=== PATIENT | male | born 1955 | race Caucasian/White ===

== ENCOUNTER → 2021-10-25 13:40 | Outpatient (BNVA) | payer MEDICARE, OTHER, SELFPAY | PROVIDERS: Family Provider Family Medicine; PCP Family Medicine; Visit Provider Family Medicine | DX: Z00.00 Encounter for general adult medical examination without abnormal findings (principal); K74.60 Unspecified cirrhosis of liver; E03.9 Hypothyroidism, unspecified; I10 Essential (primary) hypertension; E78.5 Hyperlipidemia, unspecified | CPT/HCPCS: 80053; 80061; 84443; 85025 ==

== ENCOUNTER → 2021-10-27 08:23 | Outpatient (BNVA) | payer MEDICARE, OTHER, SELFPAY | PROVIDERS: Family Provider Family Medicine; PCP Family Medicine; Visit Provider Family Medicine | DX: Z00.00 Encounter for general adult medical examination without abnormal findings (principal); K74.60 Unspecified cirrhosis of liver; E03.9 Hypothyroidism, unspecified; I10 Essential (primary) hypertension; E78.5 Hyperlipidemia, unspecified | CPT/HCPCS: 80053; 80061; 84443; 85025 ==

== ENCOUNTER → 2021-11-29 15:50 | Outpatient (BNVA) | payer MEDICARE, OTHER, SELFPAY | PROVIDERS: Family Provider Family Medicine; PCP Family Medicine; Visit Provider Family Medicine | DX: L98.9 Disorder of the skin and subcutaneous tissue, unspecified (principal) | CPT/HCPCS: 88304 ==

== ENCOUNTER → 2022-03-21 14:09 | Outpatient (BNVA) | payer MEDICARE, SELFPAY | PROVIDERS: Family Provider Family Medicine; PCP Family Medicine; Visit Provider Clinical Nurse Specialist Adult Health | DX: D62 Acute posthemorrhagic anemia (principal); I10 Essential (primary) hypertension; I85.00 Esophageal varices without bleeding | CPT/HCPCS: 80053; 85025 ==

== ENCOUNTER → 2022-05-11 08:25 | Outpatient (BNVA) | payer MEDICARE, SELFPAY | PROVIDERS: Family Provider Family Medicine; PCP Family Medicine; Visit Provider Family Medicine | DX: D62 Acute posthemorrhagic anemia (principal); I85.00 Esophageal varices without bleeding; I10 Essential (primary) hypertension; E03.9 Hypothyroidism, unspecified | CPT/HCPCS: 80053; 85025 ==

== ENCOUNTER → 2022-06-09 09:43 | Outpatient (BNVA) | payer MEDICARE, SELFPAY | PROVIDERS: Family Provider Family Medicine; PCP Family Medicine; Visit Provider Family Medicine | DX: D62 Acute posthemorrhagic anemia (principal); I10 Essential (primary) hypertension; I85.00 Esophageal varices without bleeding; L57.0 Actinic keratosis; E03.9 Hypothyroidism, unspecified | CPT/HCPCS: 80053; 85025 ==

== ENCOUNTER → 2022-08-30 08:03 | Outpatient (BNVA) | payer MEDICARE, SELFPAY | PROVIDERS: Family Provider Family Medicine; PCP Family Medicine; Visit Provider Family Medicine | DX: R60.9 Edema, unspecified (principal); I10 Essential (primary) hypertension; E03.9 Hypothyroidism, unspecified | CPT/HCPCS: 80053; 83880; 84443; 85025; 85379 ==

== ENCOUNTER 2022-09-08 10:02 | Outpatient (CLI) | payer MEDICARE, SELFPAY ==
--- NOTE | 2022-09-08 10:30 | USCV_ITS ---
Juan Doherty Age: 66 Gender: M : 1955 Exam Date: 09/08/2022 10:28 Ordering Phys: Shaheed Guzman MD Technologist: HARPAL Exam Location: [facility] [place] Indication: Swelling HISTORY: Lower extremity swelling. PROCEDURES: Venous duplex imaging was performed in only the left lower extremity. The following venous structures were evaluated: common femoral vein, profunda vein, proximal portion of the greater saphenous vein, superficial femoral vein, and the popliteal vein. In addition, the posterior tibial and peroneal trunk were evaluated. Serial compression, augmentation maneuvers, and spectral Doppler flow evaluation were performed. FINDINGS: Normal 2-D Doppler and augmentation and compressibility throughout the lower extremity venous structures. Additional imaging through the proximal calf veins also reveals no thrombus. Limited evaluation of the greater saphenous vein is patent with no thrombus. CONCLUSIONS No DVT left lower extremity. Dr. Mira De Santiago DO (Electronically Signed) Final Date: 08 September 2022 12:28 Amended: 15 September 2022 09:31 C
== END 2022-09-08 10:03 | disposition home or self-care (01) ==
LOC: RAD 10:08
PROVIDERS: PCP Family Medicine; Visit Provider Family Medicine
DX: M79.89 Other specified soft tissue disorders (principal)
CPT/HCPCS: 93971

== ENCOUNTER 2022-09-13 07:54 | Outpatient (CLI) | payer MEDICARE, SELFPAY ==
--- NOTE | 2022-09-13 08:12 | US_ITS ---
WS: [id number] ABDOMINAL ULTRASOUND LIMITED REASON FOR EXAM: CIRRHOSIS OF LIVER COMPARISON: None available. ORDER DATE: 09/13/2022 8:14 AM TECHNIQUE: Grayscale and Doppler ultrasound examination of the abdomen. FINDINGS: Pancreas: Unremarkable as visualized Abdominal aorta and IVC: Unremarkable Liver: Liver measures 14.2 cm in length. Coarse echotexture. Patent TIPS stent noted. Slightly hypoec hoic avascular lesion noted in the posterior right lobe measuring approximately 4.3 cm in diameter. T his is near the posterior diaphragm. Gallbladder: Gallbladder wall thickness measures 0.2 mm. No evidence of cholelithiasis Right kidney: Right kidney measures 9.9 cm x 5.8 cm x 6.6 cm. Right kidney cortex measures 1.3. Vascu larity unremarkable US/US abdomen limited [id number] IMPRESSION: Right hepatic lobe lesion recommend correlation with CT or MR imaging. There ma y be increased artifact resulting from the TIPS stent on other imaging.
== END 2022-09-13 07:55 | disposition home or self-care (01) ==
PROVIDERS: PCP Family Medicine; Visit Provider Nurse Practitioner
DX: K74.60 Unspecified cirrhosis of liver (principal); K76.89 Other specified diseases of liver
CPT/HCPCS: 76705

== ENCOUNTER 2022-12-12 11:52 | Outpatient (CLI) | payer MEDICARE, SELFPAY ==
--- NOTE | 2022-12-12 12:10 | CT_ITS ---
WS: [id number] CT ABDOMEN WITH CONTRAST HISTORY: LIVER DZ/CIRRHOSIS OF LIVER Contiguous single phase 3 mm axial imaging performed to the abdomen. Oral contrast has not been provi ded. Coronal and sagittal reformats are submitted. All CT scans at [facility] use at least on e of these dose optimization techniques: automated exposure control; mA and/or kV adjustment per ashly ent size (includes targeted exams where dose is matched to clinical indication); or iterative reconst ruction. IV CONTRAST: Omnipaque 350; 100 mL IV. Oral contrast: No DLP: 1168.05 mGy.cm COMPARISON: 09/13/2022 Lower thorax: Chronic emphysematous changes and fibrosis at the lung bases. No mass or nodule. Heart is normal size. Small hiatal hernia. Liver/biliary system: Cirrhotic appearing liver. Patient has a stent from prior TIPS procedure. There is a low-attenuation mass with increased Hounsfield units involving the posterior RIGHT lobe of the liver measuring 3.5 x 4.2 cm. No precontrast imaging is submitted. This was not present on the prior CT from 2010. No additional liver abnormality. Gallbladder: Normal. No gallstones or wall thickening. No pericholecystic fluid. Pancreas: Normal size pancreas and pancreatic duct. No adjacent inflammation. Spleen: Spleen is top normal size with granulomata. Adrenal glands: Normal. Right kidney: Normal. Left kidney: Normal. Aorta: Mild atherosclerosis with no aneurysm. Lymphadenopathy: None. Free fluid: None. GI tract: There is marked thickening of the stomach. No small bowel obstruction. Abdominal wall: Fat containing umbilical hernia. Visualized osseous structures: L1 compression fracture. CT/CT abdomen w con* [id number] IMPRESSION: 1. Mass with elevated Hounsfield units involving the posterior RIGHT lobe of t he liver measures 3.5 x 4.2 cm. Noncontrast imaging was not performed. The exte nt of enhancement is not determined without noncontrast imaging. This could be a cystic neoplasm or complex cyst. 2. Cirrhotic liver. 3. Status post TIPS procedure. 4. Diffuse mucosal thickening of the stomach. 5. Consider short-term follow-up CT of the liver versus PET/CT imaging. PET/CT imaging would be helpful to evaluate the stomach and also the liver.
[2022-12-12 13:03] LABS: Blood Urea Nitrogen 12 mg/dL (8-23); Glomerular Filtration Rate 84.2 mL/min (90-130)
[2022-12-12] MEDS: iohexol 350 mg/mL 500 mL Btl (per mL) IV (13:11)
== END 2022-12-12 11:53 | disposition home or self-care (01) ==
PROVIDERS: PCP Family Medicine; Visit Provider Nurse Practitioner
DX: K74.60 Unspecified cirrhosis of liver (principal); R16.0 Hepatomegaly, not elsewhere classified; Z98.890 Other specified postprocedural states; Z96.89 Presence of other specified functional implants
CPT/HCPCS: 74160; 82565; 84520; Q9967

== ENCOUNTER → 2022-12-22 11:06 | Outpatient (BNVA) | payer MEDICARE, SELFPAY | PROVIDERS: PCP Family Medicine; Visit Provider Family Medicine | DX: I10 Essential (primary) hypertension (principal); R60.9 Edema, unspecified | CPT/HCPCS: 80053; 83880; 84443; 84550; 85025 ==

== ENCOUNTER → 2023-02-01 14:54 | Outpatient (BNVA) | payer MEDICARE, SELFPAY | PROVIDERS: PCP Family Medicine; Visit Provider Family Medicine | DX: L98.9 Disorder of the skin and subcutaneous tissue, unspecified (principal) | CPT/HCPCS: 88304 ==

== ENCOUNTER 2023-02-13 09:25 | Inpatient (IN) | payer MEDICARE, SELFPAY ==
[2023-02-13] VITALS (103 sets, daily range): BP systolic 85–119; BP diastolic 48–75; PULSE 80–127; RESP 17–42; TEMP 36.6–37.4; O2SAT 67–96; BMI 28.0
--- NOTE | 2023-02-13 09:31 | XR_ITS ---
WS: [id number] Exam: XR chest 1V portable [id number] Date/Time of Exam: 02/13/2023 9:37 AM Reason For Exam: dyspnea/cough Comparison 08/01/2012. There is focal infiltrate in the LEFT lower lobe suspicious for pneumonia. There is also a focal dens ity in the mid RIGHT lung that may represent either infiltrate or a pulmonary nodule. Advanced superi mposed changes of honeycombing and bullous emphysema noted. Scarring in the bilateral lung apices. No rmal cardiomediastinal silhouette. No pleural effusions or pneumothorax. Bony structures are intact. IMPRESSION: 1. Focal infiltrate in the LEFT lower lobe suspicious for pneumonia. 2. 2.5 cm focal density in the mid RIGHT lung that may represent either focal infiltrate or pulmonary nodule. 3. Advanced changes of honeycombing and bullous emphysema. Recommendations: Contrast CT scan of the chest might be considered for more definitive evaluation.
--- NOTE | 2023-02-13 09:47 | ECG_ITS ---
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 Measurements Intervals [place] Rate: 126 P: 58 MA: 142 QRS: 47 QRSD: 82 T: 60 QT: 323 QTc: 469 Interpretive Statements SINUS TACHYCARDIA ABNORMAL RHYTHM ECG No previous ECG available for comparison Electronically Signed On 02-13-2023 16:03:13 CDT by Rosendo Almeida M.D. [id number] f
--- NOTE | 2023-02-13 09:55 | W.ED.SOB ---
HPI - SOB/Dyspnea General: Chief Complaint: Shortness of Breath/Dyspnea Stated Complaint: covid +, NVD, sob Time Seen by Provider: 02/13/23 09:29 Source: patient and family Mode of arrival: ambulatory History of Present Illness: HPI Narrative: 67-year-old male who presents to the emergency room with complaints of shortness of breath. He has a history of COPD. He has had nausea vomiting diarrhea and shortness of breath progressively worsening over the last week he tested positive for COVID this morning. He denies any chest pain. Does have a history per his report of coronary artery disease but has not had any previous bypass or stenting. Cough has been for the most part nonproductive. Normally is on 2 L at home on arrival here he is satting in the 70% 15 L by mask only increases his oxygenation to the mid 80s. MD elicited complaint: shortness of breath and cough Pertinent past history: COPD Onset (ago): week(s) (1) Timing: constant Severity: mild Exacerbating factors: nothing Relieving factors: nothing Known history of: COPD Associated symptoms: Reports chest congestion, cough, diaphoresis and nausea; Deny abdominal pain, chest pain, dizziness, extremity pain, fever(s), hemoptysis, lightheadedness, myalgias, orthopnea, palpitations, paresthesias, polydipsia, polyuria, rash, sense of impending doom, syncope, vomiting or other Review of Systems Const: Reports: diaphoresis; Denies: fever(s) Card: Denies: chest pain, palpitations, lightheadedness, syncope or orthopnea Resp: Reports: chest congestion; Denies: hemoptysis GI: Reports: nausea; Denies: abdominal pain or vomiting Musc: Denies: extremity pain Neuro: Denies: dizziness Endo: Denies: polyuria or polydipsia PFSH ED PFSH: Medical History Lora's esophagus Cirrhosis COPD (chronic obstructive pulmonary disease) Hypertension Hypothyroidism Surgical History History of colon surgery Family History Other Cancer Diabetes Social History Smoking and tobacco status: former smoker Physical Exam Const: GENERAL APPEARANCE: cooperative ORIENTATION/CONSCIOUSNESS: Yes awake, Yes oriented to person, Yes oriented to place and Yes oriented to time HENMT: COMMON NORMALS: normocephalic, atraumatic and hearing grossly normal bilaterally HEAD & SCALP: normocephalic and atraumatic Resp: COMMON NORMALS: normal respiratory effort, No retractions and No use of accessory muscles AUSCULTATION: rales and wheezes Cardio: COMMON NORMALS: regular rhythm and No murmurs present (Cardio) RATE: tachycardic RHYTHM: regular rhythm GI: COMMON NORMALS: Soft to palpation and No hepatosplenomegaly present AUSCULTATION: Yes normoactive bowel sounds PALPATION: Yes Soft to palpation, No Tenderness to palpation present (GI), No Guarding due to palpation present (GI) and Yes No hepatosplenomegaly present Extremity: COMMON NORMALS: normal to inspection, capillary refill normal, no clubbing, cyanosis or edema, no calf tenderness and no pedal edema Neuro: SENSORIUM/ORIENTATION: Yes oriented to person, Yes oriented to place and Yes oriented to time Skin: COMMON NORMALS: no rashes or lesions noted GENERAL SKIN EXAM: no rashes or lesions noted Course Vital Signs: Vital signs: Vital Signs Temperature 97.9 F 02/13/23 09:25 Pulse Rate 118 H 02/13/23 11:42 Respiratory Rate 20 H 02/13/23 11:42 Blood Pressure 119/61 02/13/23 11:42 Pulse Oximetry 96 02/13/23 11:42 Oxygen Delivery Me thod Heated High Flow 02/13/23 10:09 MDM - SOB/Dyspnea Medical Decision Making COVID pneumonitis with secondary pneumonia. Discussed with Dr. Fairbanks will admit remdesivir and dexamethasone as well as Zosyn all ordered admit to ICU on heated high flow. Patient has a history of hepatic cirrhosis previous esophageal varices status post TIPS procedure. Orders written Medical Records I reviewed the patient's medical records. Lab Data I reviewed the patient's lab results. 02/13/23 09:53 02/13/23 09:53 Labs/Radiology: Laboratory Results WBC 8.43 10^3/uL (3.29-11.43) 02/13/23 09:53 RBC 4.76 10^6/uL (3.85-5.65) 02/13/23 09:53 Hgb 14.40 g/dL (11.27-16.99) 02/13/23 09:53 Hct 43.1 % (37-53) 02/13/23 09:53 MCV 90.5 fl (82-101) 02/13/23 09:53 MCH 30.3 pg (27-33) 02/13/23 09:53 MCHC 33.4 g/dL (30-55) 02/13/23 09:53 RDW 16.8 % (12.1-15.1) H 02/13/23 09:53 Plt Count 234 10^3/cmm (157-399) 02/13/23 09:53 MPV 9.5 fL (7.4-10.4) 02/13/23 09:53 Neut % (Auto) 76.5 % 02/13/23 09:53 Lymph % (Auto) 14.8 % 02/13/23 09:53 [place] % (Auto) 7.2 % 02/13/23 09:53 Eos % (Auto) 0.1 % 02/13/23 09:53 Baso % (Auto) 0.2 % 02/13/23 09:53 Neut # (Auto) 6.44 10^3/uL (1.8-7.7) 02/13/23 09:53 Lymph # (Auto) 1.3 10^3/uL (0.8-4.8) 02/13/23 09:53 [place] # (Auto) 0.6 10^3/uL (0.2-0.9) 02/13/23 09:53 Eos # (Auto) 0.0 10^3/uL (0.0-0.8) 02/13/23 09:53 Baso # (Auto) 0.0 10^3/uL (0.0-0.1) 02/13/23 09:53 Nucleated RBC % (auto) 0 % 02/13/23 09:53 Nucleated RBCs # 0.0 /100WBC 02/13/23 09:53 Specimen Type Arterial 02/13/23 11:00 Sample Site Radial, right 02/13/23 11:00 ABG pH 7.40 (7.35-7.45) 02/13/23 11:00 ABG pCO2 21.8 mmHg (35-45) L 02/13/23 11:00 ABG pO2 76.1 mmHg (80.0-100.0) L 02/13/23 11:00 ABG HCO3 13.5 mmol/L (22-26) L 02/13/23 11:00 ABG O2 Saturation 95.1 02/13/23 11:00 ABG Base Excess -8.8 mmol/L (-2.0-2.0) L 02/13/23 11:00 Tigre Test Pos 02/13/23 11:00 A-a O2 Gradient 79.2 mmHg (5-10) H 02/13/23 11:00 Hematocrit 49.0 % (42-52) 02/13/23 11:00 Hgb O2 Saturation 94.1 % (95-100) L 02/13/23 11:00 Carboxyhemoglobin 0.9 %THgb (0.4-20.1) 02/13/23 11:00 Methemoglobin 0.2 % (0.4-1.5) L 02/13/23 11:00 Total Hemoglobin 16.0 g/dL (14-18) 02/13/23 11:00 Sodium 141.0 mmol/L (131-143) 02/13/23 11:00 Potassium 4.2 mmol/L (3.5-5.0) 02/13/23 11:00 Glucose 134.0 mg/dL (70-115) H 02/13/23 11:00 Ionized Calcium 1.1 mmol/L (1.1-1.4) 02/13/23 11:00 O2 Delivery Device Hag 02/13/23 11:00 O2 Liters/Min 60.0 % 02/13/23 11:00 FiO2 100.0 % 02/13/23 11:00 Surgical Garment Inspector ID [id number] 02/13/23 11:00 Sodium 138 mmol/L (136-145) 02/13/23 09:53 Potassium 4.2 mmol/L (3.5-5.1) 02/13/23 09:53 Chloride 107 mmol/L (98-107) 02/13/23 09:53 Carbon Dioxide 15 mmol/L (22-29) L 02/13/23 09:53 Anion Gap 20.2 (5-19) H 02/13/23 09:53 BUN 34 mg/dL (8-23) H 02/13/23 09:53 Creatinine 1.4 mg/dL (0.7-1.2) H 02/13/23 09:53 GFR Calculation 50.4 mL/min (90-130) L 02/13/23 09:53 Glucose 125 mg/dL (65-115) H 02/13/23 09:53 Calculated Osmolality 295 mOsm/kg (285-295) 02/13/23 09:53 Calcium 8.3 mg/dL (8.5-10.5) L 02/13/23 09:53 Total Bilirubin 1.1 mg/dL (0.15-1.2) 02/13/23 09:53 AST 107 U/L (0-40) H 02/13/23 09:53 ALT 45 U/L (0-41) H 02/13/23 09:53 Alkaline Phosphatase 135 U/L (40-130) H 02/13/23 09:53 Total Protein 8.7 g/dL (6.6-8.7) 02/13/23 09:53 Albumin 3.1 g/dL (3.5-5.2) L 02/13/23 09:53 Globulin 5.6 g/dL (1.3-4.6) H 02/13/23 09:53 Coronavirus 229E (PCR) Not detected (NOT DETECT) 02/13/23 09:58 SARS-CoV-2 (PCR) Detected (NOT DETECT) A 02/13/23 09:58 Discharge Plan Discharge Patient Disposition: Admitted As Inpatient Admit Provider: Cipriano Robbins Clinical Impression: Pneumonia due to COVID-19 virus Condition: Stable Coding Level of Care Code ED Library Attendant for Devendra Liu
[2023-02-13 10:06] LABS: ABG PH Result 7.41 (7.35-7.45); Arterial Blood Gas Hematocrit 49.5 % (42-52); Base Excess ABG -9.9 mmol/L (-2.0-2.0); Blood Gas Allen Test Pos; Blood Gas Operator Identificat glc; Blood Gas Sample Site Radial, right; Blood Gas Sample Type Arterial; Carboxyhemoglobin 1.1 %THgb (0.4-20.1); HCO3 ABG 11.8 mmol/L (22-26); HGB O2 Sat 90.9 % (95-100); Ionized Calcium Level - ABG 1.1 mmol/L (1.1-1.4); Methemoglobin 0.2 % (0.4-1.5); Oxygen Device HAG; Oxygen Saturation ABG 92.1; PO2 ABG 65.5 mmHg (80.0-100.0); Potassium Level - ABG 4.2 mmol/L (3.5-5.0); Total Hemoglobin 16.2 g/dL (14-18)
[2023-02-13 10:08] LABS: Basophils % 0.2 %; Eosinophils % 0.1 %; Hematocrit 43.1 % (37-53); Lymphocytes # 1.3 10^3/uL (0.8-4.8); Lymphocytes % 14.8 %; Mean Corpuscular HGB Conc 33.4 g/dL (30-55); Mean Corpuscular Hemoglobin 30.3 pg (27-33); Mean Corpuscular Volume 90.5 fl (82-101); Mean Platelet Volume 9.5 fL (7.4-10.4); Monocytes # 0.6 10^3/uL (0.2-0.9); Monocytes % 7.2 %; Neutrophils # 6.44 10^3/uL (1.8-7.7); Neutrophils % 76.5 %; Nucleated Red Blood Cells % 0 %; Platelet Count 234 10^3/cmm (157-399); Red Blood Count 4.76 10^6/uL (3.85-5.65); Red Cell Distribution Width 16.8 % (12.1-15.1); White Blood Count 8.43 10^3/uL (3.29-11.43)
[2023-02-13 10:09] LABS: ABG PCO2 18.9 mmHg (35-45)
[2023-02-13 10:23] LABS: Alanine Aminotransferase 45 U/L (0-41); Albumin Level 3.1 g/dL (3.5-5.2); Alkaline Phosphatase 135 U/L (40-130); Anion Gap 20.2 (5-19); Aspartate Amino Transferase 107 U/L (0-40); Blood Urea Nitrogen 34 mg/dL (8-23); Calcium 8.3 mg/dL (8.5-10.5); Carbon Dioxide 15 mmol/L (22-29); Chloride 107 mmol/L (98-107); Globulin 5.6 g/dL (1.3-4.6); Glomerular Filtration Rate 50.4 mL/min (90-130); Glucose 125 mg/dL (65-115); Osmolality Calculated 295 mOsm/kg (285-295); Potassium 4.2 mmol/L (3.5-5.1); Sodium 138 mmol/L (136-145); Total Bilirubin 1.1 mg/dL (0.15-1.2); Total Protein 8.7 g/dL (6.6-8.7)
[2023-02-13] MEDS: terbutaline 1 mg/mL INJ 0.25 MG SUBCUT (10:27)
[2023-02-13] MEDS: ondansetron 2 mg/ML SDV 2 mL 4 MG IVP (10:27)
--- NOTE | 2023-02-13 11:03 | PC.PHAR ---
pt states he takes care of his own medications-pt states he no longer takes metoprolol succinate er 50mg daily filled 05/08/22 90d/s or 25mg tabs take 12.5mg daily filled 03/17/22 30d/s-pt states he only has an albuterol inhaler ext doesnt shows when last filled-pt states he doesnt have a symbicort 160-4.5mcg or spiriva handihaler that was entered on previously entered med list-pt states he is only taking the medications entered-
[2023-02-13] MEDS: dexamethasone 10 mg/mL INJ IVP (11:10)
[2023-02-13] MEDS: sodium chloride 0.9% 1,000 ML 999 ML IV (11:11)
[2023-02-13 11:12] LABS: ABG PCO2 21.8 mmHg (35-45); Alveolar-Arterial Oxygen Gradi 79.2 mmHg (5-10); Base Excess ABG -8.8 mmol/L (-2.0-2.0); Blood Gas Allen Test Pos; Blood Gas Operator Identificat glc; Blood Gas Sample Site Radial, right; Blood Gas Sample Type Arterial; Carboxyhemoglobin 0.9 %THgb (0.4-20.1); HCO3 ABG 13.5 mmol/L (22-26); HGB O2 Sat 94.1 % (95-100); Ionized Calcium Level - ABG 1.1 mmol/L (1.1-1.4); Methemoglobin 0.2 % (0.4-1.5); Oxygen Device HAG; Oxygen Saturation ABG 95.1; PO2 ABG 76.1 mmHg (80.0-100.0); Potassium Level - ABG 4.2 mmol/L (3.5-5.0)
[2023-02-13 11:49] LABS: Adenovirus Not Detected (NOT DETECT); Chlamydia Pneumoniae Not Detected (NOT DETECT); Coronavirus 229E,HKU1,NL63,OC4 Not Detected (NOT DETECT); Human Metapneumovirus Not Detected (NOT DETECT); Human Rhinovirus/Enterovirus Not Detected (NOT DETECT); Influenza A Not Detected (NOT DETECT); Influenza A H1 Not Detected (NOT DETECT); Influenza A H1-2009 Not Detected (NOT DETECT); Influenza A H3 Not Detected (NOT DETECT); Influenza B Not Detected (NOT DETECT); Mycoplasma Pneumoniae Not Detected (NOT DETECT); Parainfluenza Virus Type 1 Not Detected (NOT DETECT); Parainfluenza Virus Type 2 Not Detected (NOT DETECT); Parainfluenza Virus Type 3 Not Detected (NOT DETECT); Parainfluenza Virus Type 4 Not Detected (NOT DETECT); Respiratory Syncytial Virus A Not Detected (NOT DETECT); Respiratory Syncytial Virus B Not Detected (NOT DETECT)
[2023-02-13] MEDS: piperacillin-tazobactam 3.375 GM in sodium chloride 0.9% (plus) 50 ML IV ×2 (11:49→17:55)
[2023-02-13 11:57] LABS: SARS-COV-2 Detected (NOT DETECT)
[2023-02-13] MEDS: albuterol 2.5 mg/3 mL Neb INHALATION (12:22)
[2023-02-13] MEDS: remdesivir 200 MG in sodium chloride 0.9% (100 ml) 60 ML 100 MG IV (12:27)
--- NOTE | 2023-02-13 12:36 | P.HP_ITS ---
Providers/Chief Complaint Admitting Physician: Cipriano Robbins MD Primary Care Provider: Shaheed Guzman MD Chief Complaint: covid +, NVD, sob History of Present Illness Juan Doherty is a 67 year old male who presents to the hospital with feeling ill for the last week. His history is augmented by his family who is in the room with him secondary to his tachypnea and respiratory failure. From my understanding he has been ill with loose stools over the last week, but significantly short of breath over his baseline for the last 2 days. He was told he had a fever by his grandson, but cannot remember the exact temperature. He normally takes 2 L of oxygen but is requiring 100% FiO2 by high flow, heated in the ER. He denies any chest discomfort. He states he feels perhaps a little bit better than when he came in. He has not been eating or drinking very well l ately. Review of Systems General: Reports: 10 or more systems reviewed and unremarkable except in HPI and below Card: Denies: chest pain Resp: Reports: dyspnea and productive cough GI: Denies: abdominal pain, nausea, vomiting, hematochezia or melena Medications/Allergies Home Medications Medication Instructions Recorded Confirmed Last Taken Type omeprazole 40 mg capsule,delayed 40 mg PO BID 01/08/20 02/13/23 Unknown History release montelukast 10 mg tablet 10 mg PO DAILY #30 tabs 04/21/22 02/13/23 Unknown Rx (Singulair) lactulose 10 gram/15 mL (15 mL) 20 g (30 mL) PO TID #1,440 mL 05/12/22 02/13/23 Unknown Rx oral solution albuterol sulfate 90 mcg/actuation 2 puff inhalation QID PRN 02/13/23 02/13/23 Unknown History aerosol inhaler Shortness Of Breath ascorbic acid (vitamin C) 500 mg 500 mg PO DAILY 02/13/23 02/13/23 Unknown History tablet (Vitamin C) ferrous sulfate 325 mg (65 mg 325 mg PO DAILY 02/13/23 02/13/23 Unknown History iron) tablet levothyroxine 50 mcg tablet 50 mcg PO DAILY 02/13/23 02/13/23 Unknown History milk thistle 500 mg capsule 500 mg PO DAILY 02/13/23 02/13/23 Unknown History simvastatin 40 mg tablet 40 mg PO DAILY 02/13/23 02/13/23 Unknown History turmeric 400 mg capsule 400 mg PO DAILY 02/13/23 02/13/23 Unknown History Allergies Allergy/AdvReac Type Severity Reaction Status Date / Time No Known Allergies Allergy Unverified 02/13/23 09:57 PFSH Acute PFSH: Medical History (Updated 02/13/23 @ 13:06 by Cipriano Robbins MD) Lora's esophagus Cirrhosis History of TIPS Colon cancer Resection 2013 COPD (chronic obstructive pulmonary disease) Esophageal varices History of esophageal banding GERD (gastroesophageal reflux disease) Hepatic encephalopathy Hyperlipidemia Hypertension Hypothyroidism Liver mass Pulmonary hypertension Surgical History (Updated 02/13/23 @ 12:45 by Cipriano Robbins MD) History of colon surgery History of hernia repair Family History Other Cancer Diabetes Social History (Updated 02/13/23 @ 12:46 by Cipriano Robbins MD) Smoking and tobacco status: former smoker Alcohol intake: former Substance/Drug Use: never Vitals/I&O/Wt Last Vital Signs Temp 97.9 F 02/13/23 09:25 Pulse 121 H 02/13/23 12:25 Resp 27 H 02/13/23 12:25 BP 119/61 02/13/23 11:42 Pulse Ox 92 02/13/23 12:25 O2 Del Method Heated High Flow 02/13/23 12:23 O2 Flow Rate 60 02/13/23 12:25 FiO2 100 02/13/23 12:25 02/12/23 02/13/23 02/13/23 22:59 06:59 14:59 Intake Total 1050 / 1050 Balance 1050 / 1050 Weight last 48 hrs Weight 93.894 kg Physical Exam Narrative: General exam demonstrates a thin pale appearing white male who appears older than stated age with obvious tachypnea able to complete 4-5 word sentences, currently on high flow oxygen with a saturation of around 90%. HEENT: Atraumatic and normocephalic. Pupils equally round. Mucous membranes dry. Dried mucus noted in the mouth. Neck is supple no lymphadenopathy thyromegaly Cardiovascular tachycardic, regular, no audible murmur Lungs diminished breath sounds bilaterally. Coarse rhonchi heard on the right. Abdomen is soft, positive bowel sounds. No obvious organomegaly. exam deferred Extremities show trace edema bilaterally. No cyanosis or clubbing. Skin a few excoriations to his lower extremities. No rash Neuro no obvious focal deficits, alert and oriented, able to carry on a conversation. Data 02/13/23 09:53 02/13/23 09:53 Other Labs: ABG has been performed twice. First ABG demonstrated pH 7.41, PCO2 19, PO2 65 on 100%. This was repeated and 7.40, 22, 76 on 100% high flow heated nasal cannula. LFTs are reviewed. Bilirubin is normal. AST 107, ALT 45, alk phos 135, albumin 3.1. Calcium is 8.3, normal range for albumin of 3.1 COVID PCR positive X-ray reviewed by me demonstrates some bilateral scarring, evidence of COPD, infiltrate right midlung and left lower lung. Most of his scarring and bleb formation is in the upper lobes. Blood cultures were drawn EKG demonstrates baseline artifact, sinus tachycardia with a rate of around 125. [place] is normal. Nonspecific ST-T wave flattening V4 V5 Micro: Microbiology 02/13/23 10:40 Blood Culture - Preliminary Blood SPECIMEN COLLECTED 02/13/23 09:53 Blood Culture - Preliminary Blood SPECIMEN COLLECTED A&P Assessment and plan (1) Pneumonia due to COVID-19 virus: Patient presents with COVID-19 pneumonia, with significant hypoxic respiratory failure. Remdesivir has been initiated. Plan on 5 days of treatment. Dexamethasone initiated in the emergency department. Continue 6 mg IV every 24 hours Concern of superimposed pneumonia, that may be bacterial. Zosyn has been initiated. Sputum cultures will be obtained. MRSA PCR will be obtained. Check procalcitonin level. Budesonide twice daily DuoNeb every 6 hours Cautious fluids, being sure not to overload secondary to his pulmonary condition Wean oxygen as tolerated. I visited with him the possibility of worsening or needing endotracheal intubation and mechanical ventilation. He is amenable to this if needed. If any worsening no evidence of bacterial infection consider tocilizumab or baricitinib Check procalcitonin, D-dimer, CRP for baseline. Acapella, incentive spirometry Patient to change positions, prone if possible. CBC, CMP in the morning (2) Acute respiratory failure with hypoxia: See notations above. Currently receiving 100% heated high flow. Wean as tolerated. May need BiPAP. Cannot rule out endotracheal intubation needed. (3) Metabolic acidosis: Patient presents with metabolic acidosis. This is likely secondary to dehydration and renal dysfunction Cautious hydration. Stop as soon as dehydration is resolved. (4) Transaminitis: Likely secondary to COVID-19 pneumonia. Check hepatitis panel. Repeat tomorrow with CMP (5) Acute kidney injury: Likely acute decompensation is secondary to dehydration Avoid renal toxic medication Avoid anti-inflammatories Hydrate cautiously (6) Moderate protein-calorie malnutrition: Patient with moderate protein calorie malnutrition prior to getting COVID. May also be secondary to liver disease Encourage appropriate p.o. intake assess illness improves. (7) Liver mass: Patient with history of liver mass, still pending investigation. He relates he has been sick often when they were trying to schedule biopsy. He will need this followed up as an outpatient. (8) Esophageal varices: Patient has history of esophageal varices, with bleeding in the past. He has had banding in the past and has had a TIPS procedure. For this reason I will hold his anticoagulation currently, as I believe the risk is too great. SCDs for DVT prophylaxis currently. (9) Hepatic encephalopathy: Secondary to the patient's dehydration reduce his dose of lactulose. Monitor closely for hepatic encephalopathy clinically. (10) COPD (chronic obstructive pulmonary disease): Patient with acute COPD exacerbation secondary to COVID. Continue dexamethasone, pulmonary toilet. Plan Multiple other medical problems as outlined in past medical history Full code SCDs for DVT prophylaxis Protonix for GI prophylaxis Attestations Medical Necessity Statement*: Will require greater than 2 midnight stay for evaluation and treatment of COVID- 19 pneumonia, severe with hypoxic respiratory failure Critical Care Time: The high probability of a clinically significant, sudden or life threatening deterioration of the patient's [pulmonary, renal, infectious disease, hepatic] system(s) required my full and direct attention, intervention and personal management. The critical care time is as shown. This time is in addition to time spent performing any reported procedures but includes the following: [x] Data and vital sign review and interpretation [x] Patient assessment, examination and intervention [x] Documentation [x] Medication orders and management Critical Care Time (min): 56 Coding Level of Care Code Critical Care >/= 30 minutes Critical care time (in minutes): 56 The high probability of a clinically significant, sudden or life threatening deterioration, as referenced in this documentation, required my full and direct attention, intervention and personal management. The critical care time shown is in addition to time spent performing any reported separately billable procedures and includes the following: [x] Data and vital sign review and interpretation [x ] Patient assessment, examination and intervention [x] Medication orders and management [x] Patient/Family updates as able [x] Care Coordination and Documentation. Diagnoses Pneumonia due to COVID-19 virus U07.1; J12.82 Acute respiratory failure with hypoxia J96.01 Metabolic acidosis E87.20 Transaminitis R74.01 Acute kidney injury N17.9 Moderate protein-calorie malnutrition E44.0 Liver mass R16.0 Esophageal varices I85.00 Hepatic encephalopathy K76.82 COPD (chronic obstructive pulmonary disease) J44.9
[2023-02-13] MEDS: sodium chloride 0.9% 1,000 ML 100 ML IV (12:39)
[2023-02-13 13:23] LABS: D Dimer 3.46 ug/mLFEU (0-0.59)
[2023-02-13 13:34] LABS: Procalcitonin 0.45 ng/mL (0-0.5)
[2023-02-13 13:38] LABS: Hepatitis A Antibody IgM Non-Reactive (Nonreactive); Hepatitis B Core IgM Non-Reactive (Nonreactive); Hepatitis B Surface Antigen Non-Reactive (Nonreactive); Hepatitis C Virus Antibody Non-Reactive (Nonreactive)
[2023-02-13 13:54] LABS: C Reactive Protein 118.4 mg/L (0.0-4.9)
[2023-02-13] MEDS: ipratropium-albuterol 3 mL Neb INHALATION ×2 (14:05→19:57)
[2023-02-13] MEDS: lactulose oral liq 20 gm/30 mL UDC PO (14:08)
[2023-02-13 14:12] LABS: NT Pro B Type Natriuretic Pept 263 pg/mL (0-125)
--- NOTE | 2023-02-13 15:57 | CTR_ITS ---
PROCEDURE INFORMATION: Exam: CTA Chest With Contrast Exam date and time: 02/13/2023 8:43 PM Age: 67 years old Clinical indication: Abnormal findings; Abnormal diagnostic tests; Elevated d-dimer; Additional info: Elevated dimer TECHNIQUE: Imaging protocol: Computed tomographic angiography of the chest with contrast. Exam focused on the arteries. 3D rendering (Not supervised by radiologist): MIP and/or 3D reconstructed images were created by the technologist. Radiation optimization: All CT scans at this facility use at least one of these dose optimization techniques: automated exposure control; mA and/or kV adjustment per patient size (includes targeted exams where dose is matched to clinical indication); or iterative reconstruction. Contrast material: OMNI 350; Contrast volume: 80 ml; Contrast route: INTRAVENOUS (IV); REPORTING DATA: Count of CT and Cardiac NM exams in prior 12 months: This patient has received [address] and 0 known cardiac nuclear medicine studies in the 12 months prior to the current study. COMPARISON: CR XR chest 1V portable [id number] 02/13/2023 9:52 AM RADIATION DOSE METRICS: Total DLP (mGy-cm): 575.99 FINDINGS: Pulmonary arteries: Normal. No pulmonary emboli. Aorta: Unremarkable. No aortic aneurysm. No aortic dissection. Lungs: Emphysematous changes. Patchy bilateral largely dependent airspace infiltrates. Pleural spaces: Unremarkable. No pneumothorax. No pleural effusion. Heart: Unremarkable. No cardiomegaly. No pericardial effusion. Coronary arteries: Coronary artery atherosclerotic calcifications. Lymph nodes: Unremarkable. No enlarged lymph nodes. Liver: Tips shunt seen in the liver. Spleen: Spleen enlarged at 13.8 cm. Stomach and bowel: Gastric wall thickening, may be due to nondistention, please correlate for colitis. Bones/joints: T8 vertebral body compression fracture without retropulsion of bony fragments with a possible underlying lytic bony lesion, consider correlation with MRI and/or whole body nuclear medicine bone scan as findings are somewhat concerning for metastatic disease. L1 vertebral body chronic compression fracture without retropulsion of bony fragments, similar to prior exam. Soft tissues: Unremarkable. CT/CT angio chest PE protcl [id number] IMPRESSION: 1. Negative for pulmonary embolus. 2. Coronary artery atherosclerotic calcifications. 3. Emphysematous changes. 4. Patchy bilateral largely dependent airspace infiltrates. 5. Tips shunt seen in the liver. 6. Gastric wall thickening, may be due to nondistention, please correlate for colitis. 7. Spleen enlarged at 13.8 cm. 8. T8 vertebral body compression fracture without retropulsion of bony fragments with a possible underlying lytic bony lesion, consider correlation with MRI and/or whole body nuclear medicine bone scan as findings are somewhat concerning for metastatic disease. 9. L1 vertebral body chronic compression fracture without retropulsion of bony fragments, similar to prior exam. COMMENTS: In the absence of a history or active diagnosis of lung cancer, it is recommended that this patient with emphysema be evaluated for enrollment in a low dose CT lung cancer screening program.
--- NOTE | 2023-02-13 18:39 | PC.NURSE ---
Patient arrived to unit SOB on HHF, AAOx4, soft bp with elevated HR please see chart. Patient unable to void, BS shows 325 in bladder, aguilera order in place. Patients anxiety building from current needs and needing to prone. Was unable to tolerate a prone position, will attempt again once patient is calm. Room clean and clutter free with call light within reach.
[2023-02-13] MEDS: budesonide 0.5 mg/2 mL Neb INHALATION (19:58)
[2023-02-13] MEDS: LORazepam 2 mg/mL INJ 1 mL 0.5 MG IVP (20:11)
[2023-02-13] MEDS: iohexol 350 mg/mL 500 mL Btl (per mL) IV (20:49)
[2023-02-13] MEDS: enoxaparin 40 mg/0.4 mL Syringe SUBCUT (22:21)
[2023-02-13 23:13] LABS: Add Urine Culture? No; Add Urine Microscopic? YES; Amorphous Sediment Urine 2+ /hpf; Bacteria Urine TRACE /hpf; Bilirubin Urine Neg (Negative); Blood Urine Neg (Negative); Glucose Urine UA Norm (Normal); Ketones Urine Negative (Negative); Leukocyte Esterase Urine Negative (Negative); Mucus Urine 1+ /hpf; Nitrate Urine Negative (Negative); Protein Urine 1+ (Negative); Specific Gravity, Urine 1.025 (1.005-1.030); Urine Appearance Clear (CLEAR); Urine Color Yellow (Yellow); Urobilinogen Urine 1 mg/dL (Negative); pH Urine 5 (5-7)
[2023-02-14] VITALS (104 sets, daily range): BP systolic 84–123; BP diastolic 46–73; PULSE 75–120; RESP 7–33; TEMP 35.8–36.1; O2SAT 80–97; BMI 24.8
--- NOTE | 2023-02-14 01:19 | PC.NURSE ---
NPO 20 gm PO Lactulose ordered for 0200. Patient bipap dependent. Dr. Smith on unit; order received to nonadminister tonight's dose of lactulose and keep patient NPO.
[2023-02-14] MEDS: piperacillin-tazobactam 3.375 GM in sodium chloride 0.9% (plus) 50 ML IV ×3 (01:28→16:28)
[2023-02-14] MEDS: ipratropium-albuterol 3 mL Neb INHALATION ×4 (03:19→19:37)
--- NOTE | 2023-02-14 03:40 | PC.NURSE ---
Code Status Patient stated several times that he does not want to be intubated, even as a life saving measure. Patient alert and oriented. When asked if patient wanted CPR initiated if his heart were to start, he stated I want CPR but I don't want to be on the breathing machine. Dr. Smith notified.
[2023-02-14 05:16] LABS: Basophils % 0.2 %; Hematocrit 40.2 % (37-53); Lymphocytes # 0.5 10^3/uL (0.8-4.8); Lymphocytes % 8.6 %; Mean Corpuscular HGB Conc 33.1 g/dL (30-55); Mean Corpuscular Hemoglobin 30.7 pg (27-33); Mean Corpuscular Volume 92.8 fl (82-101); Mean Platelet Volume 9.5 fL (7.4-10.4); Monocytes # 0.2 10^3/uL (0.2-0.9); Monocytes % 3.8 %; Neutrophils # 5.05 10^3/uL (1.8-7.7); Neutrophils % 86.7 %; Nucleated Red Blood Cells % 0 %; Platelet Count 199 10^3/cmm (157-399); Red Blood Count 4.33 10^6/uL (3.85-5.65); Red Cell Distribution Width 16.8 % (12.1-15.1); White Blood Count 5.82 10^3/uL (3.29-11.43)
[2023-02-14 05:36] LABS: Alanine Aminotransferase 37 U/L (0-41); Albumin Level 2.8 g/dL (3.5-5.2); Alkaline Phosphatase 127 U/L (40-130); Anion Gap 15.2 (5-19); Aspartate Amino Transferase 82 U/L (0-40); Blood Urea Nitrogen 45 mg/dL (8-23); C Reactive Protein 130.5 mg/L (0.0-4.9); Calcium 8.3 mg/dL (8.5-10.5); Carbon Dioxide 17 mmol/L (22-29); Chloride 110 mmol/L (98-107); Globulin 5.4 g/dL (1.3-4.6); Glomerular Filtration Rate 50.4 mL/min (90-130); Glucose 158 mg/dL (65-115); Magnesium 2.9 mg/dL (1.7-2.3); Osmolality Calculated 301 mOsm/kg (285-295); Potassium 4.2 mmol/L (3.5-5.1); Sodium 138 mmol/L (136-145); Total Protein 8.2 g/dL (6.6-8.7)
--- NOTE | 2023-02-14 07:18 | PC.NURSE ---
Temperature Patient's temperature 96.5 axillary at 0545. Multiple warm blankets applied. At 0645, temperature [address] Robbins notified; order received to apply magda huggar.
[2023-02-14 07:43] LABS: Creatine Phosphokinase 100 U/L (39-308)
[2023-02-14] MEDS: budesonide 0.5 mg/2 mL Neb INHALATION ×2 (08:08→19:37)
--- NOTE | 2023-02-14 08:33 | P.PN_ITS ---
Subjective Subjective: Juan was on BiPAP last night. He was needing a CTA, and could not lay flat. He was marginally being managed on high flow oxygen at 100% FiO2 with sats around 88 to 92%. He feels better this morning. Nursing visited again with his CODE STATUS last night and he reported he would not want intubation. I confirmed this with him this morning. This needs to be discussed with his family as well and I will try later on today. He denies any pain. Medications: Reviewed: Yes Vitals/I&O/Wt Last Vital Signs Temp 96.5 F L 02/14/23 05:45 Pulse 91 02/14/23 08:00 Resp 30 H 02/14/23 08:00 BP 101/57 02/14/23 07:00 Pulse Ox 92 02/14/23 08:00 O2 Del Method BiPAP 02/14/23 08:00 O2 Flow Rate 60 02/13/23 20:00 FiO2 55 02/14/23 08:00 02/13/23 02/14/23 02/14/23 22:59 06:59 14:59 Intake Total 719.167 / 1957.500 50 / 2007.500 Output Total 0 / 0 800 / 800 Balance 719.167 / 1957.500 -750 / 1207.500 Weight last 48 hrs Weight 83.007 kg Weight 93.894 kg Physical Exam Narrative: General exam white male, on BiPAP, difficult to understand but does not appear to be in any respiratory distress with the support. Neck is supple no lymphadenopathy thyromegaly Cardiovascular regular rate and rhythm, without murmur Lungs diminished breath sounds bilaterally. No wheezing or rhonchi Abdomen is soft, positive bowel sounds. No obvious organomegaly. exam Ramos noted Extremities show trace edema bilaterally. No cyanosis or clubbing. Urinary Catheter Management: Coude: Cath Placed During This Visit: yes Reason for Continuing Indwelling Catheter: Accurate Measurement of Urinary Output in Critically Ill Patients Urinary Catheter Date of Insertion: 02/13/23 Urinary Catheter Time of Insertion: 21:30 Data 02/14/23 04:29 02/14/23 04:29 Other Labs: Echocardiogram and venous duplex are ordered but pending CTA which I reviewed as well demonstrates a tremendous amount of honeycombing, some scattered areas of consolidation, no evidence of pulmonary embolism. T8 compression fracture, cannot rule out metastatic lesion Micro: Microbiology 02/13/23 09:53 Blood Culture - Preliminary Blood 02/13/23 10:40 Blood Culture - Preliminary Blood SPECIMEN COLLECTED A&P Assessment and plan (1) Pneumonia due to COVID-19 virus: Patient presents with COVID-19 pneumonia, with significant hypoxic respiratory failure. Continue remdesivir. Plan on 5 days of treatment. Continue dexamethasone 6 mg IV every 24 hours Concern of superimposed pneumonia, that may be bacterial. Zosyn has been initiated. Sputum cultures, MRSA PCR pending Procalcitonin level higher end of normal Continue budesonide twice daily Continue DuoNeb every 6 hours Fluids have been discontinued. Overall about a liter up, likely warranted secondary to dehydration on admission Currently requiring BiPAP, and has weaned down to an FiO2 of 55%. Still high risk for decompensation. Now refusing consideration of intubation. To try to optimize his condition and a pulmonary consult will be obtained today. Inflammatory markers higher today. I will ask pulmonary if they believe baricitinib, or tocilizumab is warranted. However, these may be contraindicated if bacterial infection is thought likely No evidence of pulmonary embolism on CTA Continue Acapella, incentive spirometry Prone if possible CBC, CMP in the morning Overall condition has worsened as patient is now requiring BiPAP. (2) Acute respiratory failure with hypoxia: See notations above. Currently on BiPAP. Wean as tolerated. (3) Metabolic acidosis: Patient presents with metabolic acidosis. This is likely secondary to dehydration and renal dysfunction This has improved (4) Transaminitis: Likely secondary to COVID-19 pneumonia. Improved. Hepatitis panel negative (5) Acute kidney injury: Stable. Repeat creatinine tomorrow Avoid renal toxic medication Avoid anti-inflammatories (6) Moderate protein-calorie malnutrition: Patient with moderate protein calorie malnutrition prior to getting COVID. May also be secondary to liver disease Encourage appropriate p.o. intake assess illness improves. (7) Liver mass: Patient with history of liver mass, still pending investigation. He relates he has been sick often when they were trying to schedule biopsy. He will need this followed up as an outpatient. T9 demonstrates a compression fracture on CTA, with possible pathologic lesion. This will also need to be followed up as an outpatient. (8) Esophageal varices: Patient has history of esophageal varices, with bleeding in the past. He has had banding in the past and has had a TIPS procedure. No active bleeding currently. Secondary to elevated dimer, COVID, Lovenox was initiated. Monitor closely for any bleeding. (9) Hepatic encephalopathy: Secondary to the patient's dehydration reduce his dose of lactulose. Monitor closely for hepatic encephalopathy clinically. (10) COPD (chronic obstructive pulmonary disease): Patient with acute COPD exacerbation secondary to COVID. Continue dexamethas one, pulmonary toilet. Plan Multiple other medical problems as outlined in past medical history Full code SCDs for DVT prophylaxis Protonix for GI prophylaxis Attestations Medical Necessity Statement*: Needs continued hospital stay, secondary to severe COVID now requiring BiPAP Critical Care Time: The high probability of a clinically significant, sudden or life threatening deterioration of the patient's [pulmonary, renal, hepatic] system(s) required my full and direct attention, intervention and personal management. The critical care time is as shown. This time is in addition to time spent performing any reported procedures but includes the following: [x] Data and vital sign review and interpretation [x] Patient assessment, examination and intervention [x] Documentation [x] Medication orders and management Critical Care Time (min): 31 Coding Level of Care Code Critical Care >/= 30 minutes Critical care time (in minutes): 31 The high probability of a clinically significant, sudden or life threatening deterioration, as referenced in this documentation, required my full and direct attention, intervention and personal management. The critical care time shown is in addition to time spent performing any reported separately billable procedures and includes the following: [x] Data and vital sign review and interpretation [x ] Patient assessment, examination and intervention [x] Medication orders and management [x] Patient/Family updates as able [x] Care Coordination and Documentation. Diagnoses Pneumonia due to COVID-19 virus U07.1; J12.82 Acute respiratory failure with hypoxia J96.01 Metabolic acidosis E87.20 Transaminitis R74.01 Acute kidney injury N17.9 Moderate protein-calorie malnutrition E44.0 Liver mass R16.0 Esophageal varices I85.00 Hepatic encephalopathy K76.82 COPD (chronic obstructive pulmonary disease) J44.9
[2023-02-14] MEDS: dexamethasone 10 mg/mL INJ 6 MG IVP (08:43)
[2023-02-14] MEDS: atorvastatin 40 mg Tablet 20 MG PO (08:43)
[2023-02-14] MEDS: levothyroxine 50 mcg Tablet PO (08:44)
[2023-02-14] MEDS: montelukast sodium 10 mg Tablet PO (08:44)
[2023-02-14] MEDS: pantoprazole 40 mg SDV IVP (08:44)
--- NOTE | 2023-02-14 10:02 | PM.OP ---
Operative Report Date of procedure: February 14, 2023 Surgeon: Tab Mejia MD
[2023-02-14] MEDS: vancomycin 1,500 MG/300 ML PIGGYBACK 200 MG IV (10:58)
[2023-02-14] MEDS: remdesivir 100 MG in sodium chloride 0.9% (100 ml) 80 ML IV (14:09)
[2023-02-14 14:53] LABS: Methicillin-Resist S.aureu PCR NOT DETECTED (NOT DETECTED)
--- NOTE | 2023-02-14 15:57 | USCV_ITS ---
Juan Doherty Age: 67 Gender: M : 1955 Exam Date: 02/14/2023 01:45 Ordering Phys: Cipriano Robbins MD Technologist: GERALD [place] [facility] [place]: elevated D-Dimer, SOB, COPD, COVID+, hx CAD, no stents, no CABG O2 dependent 2L HISTORY: elevated D-Dimer, SOB, COPD, COVID+, hx CAD, no stents, no CABG O2 dependent 2L Patient on BIPAP in ICU8 PROCEDURES: Venous duplex imaging was performed in bilateral lower extremities. The following venous structures were evaluated: common femoral vein, profunda vein, proximal portion of the greater saphenous vein, superficial femoral vein, and the popliteal vein. In addition, the posterior tibial veins were evaluated. Serial compression, augmentation maneuvers, and spectral Doppler flow evaluation were performed, which were normal. Bilaterally, the common femoral, superficial femoral, profunda femoral, popliteal, posterior tibial, and greater saphenous veins were identified and interrogated in the standard fashion. These veins were found to be easily compressible with spontaneous blood flow. No evidence of thrombus noted. CONCLUSIONS No evidence of right lower extremity DVT. No evidence of left lower extremity DVT. Archie Shelton MD (Electronically Signed) Final Date: 14 February 2023 11:32 S
--- NOTE | 2023-02-14 15:57 | USCV_ITS ---
Juan Doherty Age: 67 Gender: M : 1955 Exam Date: 02/14/2023 02:06 Ordering Phys: Cipriano Robbins MD Technologist: GERALD [place]am [place] [facility] [place]: elevated D-Dimer. SOB COPD COVID+ hx CAD but no stents, no CABG. O2 dependent 2L. Patient is on BIPAP in ICU8 BP: 102 / 65 HR: 84 Rhythm: Sinus Technical Quality: Poor secondary to COPD, low- lying heart MEASUREMENTS (Male / Female) Normal Values 2D ECHO LV Diastolic Diameter PLAX 4.4 cm 4.2 - 5.9 / 3.9 - 5.3 cm LV Systolic Diameter PLAX 2.5 cm IVS Diastolic Thickness 1.2 cm 0.6 - 1.0 / 0.6 - 0.9 cm IVS Systolic Thickness 1.9 cm LVPW Diastolic Thickness 1.1 cm 0.6 - 1.0 / 0.6 - 0.9 cm LVPW Systolic Thickness 1.4 cm LVOT Diameter 1.9 cm LV Ejection Fraction 2D Teich 73.1 % LV Ejection Fraction MOD 2C 68.0 % LV Ejection Fraction 2C AL 70.7 % LA Diameter 3.3 cm LA Width 2.8 cm LA Height 5.8 cm RA Width 3.8 cm RA Height 4.0 cm Aorta at Sinotubular Diameter 3.4 cm IVC Diameter 1.8 cm DOPPLER AV Peak Velocity 288.7 cm/s LVOT Peak Velocity 99.0 cm/s AV Area Cont Eq vti 0.9 cm squared AV Area Cont Eq pk 1.0 cm squared MV Peak Velocity 100.0 cm/s MV Area PHT 4.6 cm squared Mitral E to A Ratio 1.0 MV E' Velocity 90.0 cm/s TR Peak Velocity 234.0 cm/s TR Peak Gradient 21.9 mmHg TV Peak E Velocity 41.0 cm/s Right Atrial Pressure 5.0 mmHg Pulmonary Artery Systolic Pressu 26.9 mmHg FINDINGS Left Ventricle Left ventricle is normal in size. LV systolic function is normal with EF of 55-60%. No regional wall motion abnormalities. Right Ventricle Normal in size and function Right Atrium Normal in size Left Atrium Normal in size Mitral Valve Mild mitral annular calcification. Aortic Valve Aortic valve is thickened and calcified. Moderate aortic stenosis with aortic valve area of 0.85cm2 and mean gradient of 14mmHg. Tricuspid Valve Trace tricuspid regurgitation. Insufficient TR jet to calculate RVSP Pulmonic Valve Not well visualized Pericardium Normal Aorta Normal in size IVC Appears to be normal CONCLUSIONS LV systolic function is normal with EF of 55-60% Moderate aortic stenosis with aortic valve area of 0.85cm2 and mean gradient of 14mmHg. Trace tricuspid regurgitation No comparison studies are available. Rodney Kramer MD (Electronically Signed) Final Date: 17 February 2023 11:09 S
[2023-02-14] MEDS: enoxaparin 40 mg/0.4 mL Syringe SUBCUT (21:23)
[2023-02-15] VITALS (46 sets, daily range): BP systolic 91–128; BP diastolic 43–65; PULSE 83–110; RESP 17–34; TEMP 35.9–36.4; O2SAT 71–90
[2023-02-15] MEDS: piperacillin-tazobactam 3.375 GM in sodium chloride 0.9% (plus) 50 ML IV ×3 (01:16→17:21)
[2023-02-15] MEDS: ipratropium-albuterol 3 mL Neb INHALATION ×4 (01:44→21:54)
[2023-02-15] MEDS: vancomycin 1,500 MG/300 ML PIGGYBACK 200 MG IV ×2 (04:47→22:33)
[2023-02-15 05:08] LABS: Basophils % 0.1 %; Hematocrit 38.9 % (37-53); Lymphocytes # 0.6 10^3/uL (0.8-4.8); Lymphocytes % 5.4 %; Mean Corpuscular HGB Conc 34.2 g/dL (30-55); Mean Corpuscular Hemoglobin 30.6 pg (27-33); Mean Corpuscular Volume 89.6 fl (82-101); Mean Platelet Volume 9.5 fL (7.4-10.4); Monocytes # 0.7 10^3/uL (0.2-0.9); Monocytes % 5.6 %; Neutrophils # 10.14 10^3/uL (1.8-7.7); Nucleated Red Blood Cells % 0 %; Platelet Count 271 10^3/cmm (157-399); Red Blood Count 4.34 10^6/uL (3.85-5.65); Red Cell Distribution Width 16.8 % (12.1-15.1); White Blood Count 11.52 10^3/uL (3.29-11.43)
[2023-02-15 05:32] LABS: Alanine Aminotransferase 31 U/L (0-41); Albumin Level 2.7 g/dL (3.5-5.2); Alkaline Phosphatase 126 U/L (40-130); Anion Gap 15.1 (5-19); Aspartate Amino Transferase 57 U/L (0-40); Blood Urea Nitrogen 55 mg/dL (8-23); C Reactive Protein 67.1 mg/L (0.0-4.9); Calcium 8.1 mg/dL (8.5-10.5); Carbon Dioxide 16 mmol/L (22-29); Chloride 114 mmol/L (98-107); Globulin 5.2 g/dL (1.3-4.6); Glomerular Filtration Rate 54.9 mL/min (90-130); Glucose 176 mg/dL (65-115); Magnesium 3.2 mg/dL (1.7-2.3); Osmolality Calculated 311 mOsm/kg (285-295); Potassium 4.1 mmol/L (3.5-5.1); Sodium 141 mmol/L (136-145); Total Protein 7.9 g/dL (6.6-8.7)
--- NOTE | 2023-02-15 06:36 | P.CONIM_ITS ---
Providers/Reason For Consult Consulting Physician/Specialty*: Tab Mejia MD/pulmonary critical care Reason for Consult*: Acute hypoxic respiratory failure secondary to COVID-19 pneumonia Requesting Physician: Cipriano Robbins MD Attending Physician: Cipriano Robbins MD Primary Care Provider: Shaheed Guzman MD History of Present Illness History of Present Illness Juan Doherty is a 67 year old male With significant past medical history of severe centrilobular emphysema with fibrosis, GERD, hyperlipidemia, hypertension, hypothyroidism, pulmonary hypertension came to emergency room on 02/13/2023 for not feeling well for 1 week. Also reported increasing tachypnea and respiratory distress. Patient reports that he lives with his grandsons. Tells me that he uses 2 L oxygen at home but did not ER he was requiring 100% high flow. Gives me history of smoking at least 1 to 4 packs of cigarettes for over 35 years and quit in 2007. Next His med rec showed patient taking sildenafil 20 mg 3 times daily for suspected pulmonary hypertension. He has a history of liver mass and pending investigation. He has history of esophageal varices with bleeding in the past s/p banding in the past and has had TIPS procedure. Admission labs are 02/13/2023 COVID PCR positive. Admission ABG 7.4 0//13 saturation 95% on 60 L 100% high flow. Patient is in respiratory alkalosis. Other pertinent labs patient has AKA; elevated LFTs, increased CRP 118,. Admission labs CTA ruled out PE. Coronary artery atherosclerotic calcifications. Emphysematous changes. Possible lytic lesion in T8 vertebral body. Sputum cultures grew gram-positive cocci in pairs, chains, clusters. Venous Doppler no evidence of DVT Blood cultures negative to date-sputum cultures grew few gram-positive cocci in pairs, chains, clusters few gram-negative rods-currently patient is covered with vancomycin and Zosyn. Currently he is admitted to ICU for acute hypoxic respiratory failure secondary to COVID-19 pneumonia requiring high flow nasal cannula on Pulmonary consulted for suspected pulmonary hypertension as well as hypoxic respiratory failure and COVID-19 I spoke to patient at bedside regarding his diagnosis of COPD and smoking history He mentioned using Advair for his COPD and uses 2 L baseline oxygen at home Currently he is requiring 40 L 55% HFNC-Currently saturating 84 to 88% on monitor He refused intubation Review of Systems General: Reports: 10 or more systems reviewed and unremarkable except in HPI and below Medications/Allergies Home Medications Medication Instructions Recorded Confirmed Last Taken Type omeprazole 40 mg capsule,delayed 40 mg PO BID 01/08/20 02/13/23 Unknown History release montelukast 10 mg tablet 10 mg PO DAILY #30 tabs 04/21/22 02/13/23 Unknown Rx (Singulair) lactulose 10 gram/15 mL (15 mL) 20 g (30 mL) PO TID #1,440 mL 05/12/22 02/13/23 Unknown Rx oral solution albuterol sulfate 90 mcg/actuation 2 puff inhalation QID PRN 02/13/23 02/13/23 Unknown History aerosol inhaler Shortness Of Breath ascorbic acid (vitamin C) 500 mg 500 mg PO DAILY 02/13/23 02/13/23 Unknown History tablet (Vitamin C) ferrous sulfate 325 mg (65 mg 325 mg PO DAILY 02/13/23 02/13/23 Unknown History iron) tablet levothyroxine 50 mcg tablet 50 mcg PO DAILY 02/13/23 02/13/23 Unknown History milk thistle 500 mg capsule 500 mg PO DAILY 02/13/23 02/13/23 Unknown History simvastatin 40 mg tablet 40 mg PO DAILY 02/13/23 02/13/23 Unknown History turmeric 400 mg capsule 400 mg PO DAILY 02/13/23 02/13/23 Unknown History Allergies Allergy/AdvReac Type Severity Reaction Status Date / Time No Known Allergies Allergy Unverified 02/13/23 09:57 Current Medications Generic Name Dose Route Start Last Admin Trade Name Freq PRN Reason Stop Dose Admin Albuterol/Ipratropium 3 ml 02/13/23 13:15 02/15/23 01:44 Ipratropium-Albuterol 3 Ml Neb INHALATION 3 ml Q6H ANDREAS Administration Atorvastatin Calcium 20 mg 02/14/23 09:00 02/14/23 08:43 Atorvastatin 40 Mg Tablet PO 20 mg DAILY ANDREAS Administration Budesonide 0.5 mg 02/13/23 20:00 02/14/23 19:37 Budesonide 0.5 Mg/2 Ml Neb INHALATION 0.5 mg BID.RESPIRATORY ANDREAS Administration Dexamethasone 6 mg 02/14/23 09:00 02/14/23 08:43 Dexamethasone 10 Mg/Ml Inj IVP 6 mg Q24H ANDREAS Administration Enoxaparin Sodium 40 mg 02/13/23 22:00 02/14/23 21:23 Enoxaparin 40 Mg/0.4 Ml Syringe SUBCUT 40 mg Q24H ANDREAS Administration Piperacillin Sod/Tazobactam 50 mls @ 12.5 mls/hr 02/13/23 17:45 02/15/23 01:16 Sod 3.375 gm/ Sodium Chloride IV 12.5 mls/hr Q8H ANDREAS Administration Protocol As Directed Remdesivir 100 mg/ Sodium 100 mls @ 100 mls/hr 02/14/23 12:30 02/14/23 14:09 Chloride IV 02/17/23 13:29 100 mls/hr Q24H ANDREAS Administration Vancomycin/PEG/NADA/Lysine/Water 1,500 mg in 300 mls @ 200 mls/hr 02/14/23 11:00 02/15/23 04:47 Vancocin IV 200 mls/hr Q18H ANDREAS Administration Levothyroxine Sodium 50 mcg 02/14/23 09:00 02/14/23 08:44 Levothyroxine 50 Mcg Tablet PO 50 mcg DAILY ANDREAS Administration Lorazepam 0.5 mg 02/13/23 18:15 02/13/23 20:11 Lorazepam 2 Mg/Ml Inj 1 Ml IVP 0.5 mg Q8H PRN Administration ANXIETY Montelukast Sodium 10 mg 02/14/23 09:00 02/14/23 08:44 Montelukast Sodium 10 Mg Tablet PO 10 mg DAILY ANDREAS Administration Pantoprazole Sodium 40 mg 02/14/23 09:00 02/14/23 08:44 Pantoprazole 40 Mg Sdv IVP 40 mg DAILY ANDREAS Administration PFSH Acute PFSH: Medical History Lora's esophagus Cirrhosis History of TIPS Colon cancer Resection 2013 COPD (chronic obstructive pulmonary disease) Esophageal varices History of esophageal banding GERD (gastroesophageal reflux disease) Hepatic encephalopathy Hyperlipidemia Hypertension Hypothyroidism Liver mass Pulmonary hypertension Surgical History History of colon surgery History of hernia repair Family History Other Cancer Diabetes Social History (Reviewed 02/15/23 @ 06:51 by RAFAELA Colon Smoking and tobacco status: former smoker Alcohol intake: former Substance/Drug Use: never Vitals/I&O/Wt Last Vital Signs Temp 97.6 F 02/15/23 05:00 Pulse 94 02/15/23 06:12 Resp 21 H 02/15/23 06:00 BP 106/57 02/15/23 06:00 Pulse Ox 88 L 02/15/23 06:12 O2 Del Method BiPAP 02/15/23 06:00 O2 Flow Rate 50 02/14/23 19:41 FiO2 55 02/15/23 06:12 02/14/23 02/14/23 02/15/23 14:59 22:59 06:59 Intake Total 650 / 650 50 / 700 Output Total 720 / 720 400 / 1120 Balance 650 / 650 -670 / -20 -400 / -420 Weight last 48 hrs Weight 190 lb 6 oz Weight 183 lb Weight 207 lb Physical Exam Narrative: General: alert, NAD HEENT: conj clear, EOMI, PERRL, mmm, Neck: supple, no meningismus Heme: no cervical LAP Respiratory: Inspection: No visible deformity of the chest wall Palpation: Trachea is mildly deviated to the right, bilateral symmetric expansion Percussion: Bilateral tympanic percussion note both anterior and posteriorly Auscultation: Reduced breath sounds bilaterally Cardiovascular: rrr, nl s1s2, no mrg Abdomen: soft, nt, nd, no r/g, bs+ Extremities: pulses +, no edema, no c/c : no CVA tenderness Skin: intact, no rash MSK: no back or neck pain Neurologic: grossly intact Urinary Catheter Management: Coude: Cath Placed During This Visit: yes Reason for Continuing Indwelling Catheter: Accurate Measurement of Urinary Ou tput in Critically Ill Patients Urinary Catheter Date of Insertion: 02/13/23 Urinary Catheter Time of Insertion: 21:30 Data 02/15/23 04:30 02/15/23 04:30 Other Labs: Radiology Impressions Chest CTA 02/13/23 15:57 IMPRESSION: 1. Negative for pulmonary embolus. 2. Coronary artery atherosclerotic calcifications. 3. Emphysematous changes. 4. Patchy bilateral largely dependent airspace infiltrates. 5. Tips shunt seen in the liver. 6. Gastric wall thickening, may be due to nondistention, please correlate for colitis. 7. Spleen enlarged at 13.8 cm. 8. T8 vertebral body compression fracture without retropulsion of bony fragments with a possible underlying lytic bony lesion, consider correlation with MRI and/or whole body nuclear medicine bone scan as findings are somewhat concerning for metastatic disease. 9. L1 vertebral body chronic compression fracture without retropulsion of bony fragments, similar to prior exam. COMMENTS: In the absence of a history or active diagnosis of lung cancer, it is recommended that this patient with emphysema be evaluated for enrollment in a low dose CT lung cancer screening program. Laboratory Results WBC 11.52 10^3/uL (3.29-11.43) H 02/15/23 04:30 RBC 4.34 10^6/uL (3.85-5.65) 02/15/23 04:30 Hgb 13.30 g/dL (11.27-16.99) 02/15/23 04:30 Hct 38.9 % (37-53) 02/15/23 04:30 MCV 89.6 fl (82-101) 02/15/23 04:30 MCH 30.6 pg (27-33) 02/15/23 04:30 MCHC 34.2 g/dL (30-55) 02/15/23 04:30 RDW 16.8 % (12.1-15.1) H 02/15/23 04:30 Plt Count 271 10^3/cmm (157-399) D 02/15/23 04:30 MPV 9.5 fL (7.4-10.4) 02/15/23 04:30 Neut % (Auto) 88.0 % 02/15/23 04:30 Lymph % (Auto) 5.4 % 02/15/23 04:30 Rooks % (Auto) 5.6 % 02/15/23 04:30 Eos % (Auto) 0.0 % 02/15/23 04:30 Baso % (Auto) 0.1 % 02/15/23 04:30 Neut # (Auto) 10.14 10^3/uL (1.8-7.7) H 02/15/23 04:30 Lymph # (Auto) 0.6 10^3/uL (0.8-4.8) L 02/15/23 04:30 Rooks # (Auto) 0.7 10^3/uL (0.2-0.9) 02/15/23 04:30 Eos # (Auto) 0.0 10^3/uL (0.0-0.8) 02/15/23 04:30 Baso # (Auto) 0.0 10^3/uL (0.0-0.1) 02/15/23 04:30 Nucleated RBC % (auto) 0 % 02/15/23 04:30 Nucleated RBCs # 0.0 /100WBC 02/15/23 04:30 D-Dimer 3.46 ug/mLFEU (0-0.59) H 02/13/23 09:53 Specimen Type Arterial 02/13/23 11:00 Sample Site Radial, right 02/13/23 11:00 ABG pH 7.40 (7.35-7.45) 02/13/23 11:00 ABG pCO2 21.8 mmHg (35-45) L 02/13/23 11:00 ABG pO2 76.1 mmHg (80.0-100.0) L 02/13/23 11:00 ABG HCO3 13.5 mmol/L (22-26) L 02/13/23 11:00 ABG O2 Saturation 95.1 02/13/23 11:00 ABG Base Excess -8.8 mmol/L (-2.0-2.0) L 02/13/23 11:00 Tigre Test Pos 02/13/23 11:00 A-a O2 Gradient 79.2 mmHg (5-10) H 02/13/23 11:00 Hematocrit 49.0 % (42-52) 02/13/23 11:00 Hgb O2 Saturation 94.1 % (95-100) L 02/13/23 11:00 Carboxyhemoglobin 0.9 %THgb (0.4-20.1) 02/13/23 11:00 Methemoglobin 0.2 % (0.4-1.5) L 02/13/23 11:00 Total Hemoglobin 16.0 g/dL (14-18) 02/13/23 11:00 Sodium 141.0 mmol/L (131-143) 02/13/23 11:00 Potassium 4.2 mmol/L (3.5-5.0) 02/13/23 11:00 Glucose 134.0 mg/dL (70-115) H 02/13/23 11:00 Ionized Calcium 1.1 mmol/L (1.1-1.4) 02/13/23 11:00 O2 Delivery Device Hag 02/13/23 11:00 O2 Liters/Min 60.0 % 02/13/23 11:00 FiO2 100.0 % 02/13/23 11:00 Electronic Equipment Installer ID glc 02/13/23 11:00 Sodium 141 mmol/L (136-145) 02/15/23 04:30 Potassium 4.1 mmol/L (3.5-5.1) 02/15/23 04:30 Chloride 114 mmol/L (98-107) H 02/15/23 04:30 Carbon Dioxide 16 mmol/L (22-29) L 02/15/23 04:30 Anion Gap 15.1 (5-19) 02/15/23 04:30 BUN 55 mg/dL (8-23) H 02/15/23 04:30 Creatinine 1.3 mg/dL (0.7-1.2) H 02/15/23 04:30 GFR Calculation 54.9 mL/min (90-130) L 02/15/23 04:30 Glucose 176 mg/dL (65-115) H 02/15/23 04:30 Calculated Osmolality 311 mOsm/kg (285-295) H 02/15/23 04:30 Calcium 8.1 mg/dL (8.5-10.5) L 02/15/23 04:30 Magnesium 3.2 mg/dL (1.7-2.3) H 02/15/23 04:30 Total Bilirubin 1.0 mg/dL (0.15-1.2) 02/15/23 04:30 AST 57 U/L (0-40) H 02/15/23 04:30 ALT 31 U/L (0-41) 02/15/23 04:30 Alkaline Phosphatase 126 U/L (40-130) 02/15/23 04:30 Creatine Kinase 100 U/L (39-308) 02/14/23 04:29 C-Reactive Protein 67.1 mg/L (0.0-4.9) H 02/15/23 04:30 NT-Pro-B Natriuret Pep 263 pg/mL (0-125) H 02/13/23 09:53 Total Protein 7.9 g/dL (6.6-8.7) 02/15/23 04:30 Albumin 2.7 g/dL (3.5-5.2) L 02/15/23 04:30 Globulin 5.2 g/dL (1.3-4.6) H 02/15/23 04:30 Procalcitonin 0.45 ng/mL (0-0.5) 02/13/23 09:53 Urine Color Yellow (Yellow) 02/13/23 22:08 Urine Appearance Clear (CLEAR) 02/13/23 22:08 Urine pH 5 (5-7) 02/13/23 22:08 Ur Specific [place] 1.025 (1.005-1.030) 02/13/23 22:08 Urine Protein 1+ (Negative) H 02/13/23 22:08 Urine Glucose (UA) Norm (Normal) 02/13/23 22:08 Urine Ketones Negative (Negative) 02/13/23 22:08 Urine Blood Neg (Negative) 02/13/23 22:08 Urine Nitrate Negative (Negative) 02/13/23 22:08 Urine Bilirubin Neg (Negative) 02/13/23 22:08 Urine Urobilinogen 1 mg/dL (Negative) H 02/13/23 22:08 Ur Leukocyte Esterase Negative (Negative) 02/13/23 22:08 Urine RBC None /hpf (0-2) 02/13/23 22:08 Urine WBC None /hpf (0-5) 02/13/23 22:08 Ur Squamous Epith Cells None /hpf (0-5) 02/13/23 22:08 Amorphous Sediment 2+ /hpf 02/13/23 22:08 Urine Bacteria Trace /hpf (NONE) 02/13/23 22:08 Urine Mucus 1+ /hpf 02/13/23 22:08 Coronavirus 229E (PCR) Not detected (NOT DETECT) 02/13/23 09:58 Hepatitis A IgM Ab Non-reactive (Nonreactive) 02/13/23 09:53 Hep Bs Antigen Non-reactive (Nonreactive) 02/13/23 09:53 Hep B Core IgM Ab Non-reactive (Nonreactive) 02/13/23 09:53 Hepatitis C Antibody Non-reactive (Nonreactive) 02/13/23 09:53 SARS-CoV-2 (PCR) Detected (NOT DETECT) A 02/13/23 09:58 MRSA (PCR) Not detected (NOT DETECTED) 02/13/23 13:21 Micro: Microbiology 02/13/23 10:40 Blood Culture - Preliminary Blood NEGATIVE TO DATE 02/13/23 19:32 Gram Stain - Final Sputum - Expectorated Sputum 02/13/23 09:53 Blood Culture - Preliminary Blood A&P Assessment and plan (1) COPD (chronic obstructive pulmonary disease): (2) Acute respiratory failure with hypoxia: Plan 67-year-old male with past medical history of severe centrilobular emphysema with fibrosis currently admitted to ICU for hypoxic respiratory failure requiring high flow nasal cannula. NEURO: #No issues with mentation PULM: #Acute hypoxic respiratory failure secondary to COVID-19 pneumonia #Severe centrilobular emphysema with fibrosis -CTA ruled out PE showed severe emphysematous changes as well as bilateral patchy airspace infiltrates -Continue oxygen support-currently requiring HFNC 40 L 55%-Target saturation 85 to 88% -Remdesivir for 5 days; dexamethasone 6 mg IV push daily -Scheduled nebulizations with DuoNeb as well as Pulmicort -Continue broad-spectrum antibiotic Zosyn as well as vancomycin CVS: #? pulmonary hypertension #Hemodynamically stable -CV echo performed-report pending GI: #Soft pureed diet with aspiration precautions #GI prophylaxis: PPI RENAL: #PAGE-likely secondary to COVID HEM: #No issues #Elevated D-dimer-CTA negative for PE and bilateral venous Dopplers negative for DVT ENDO: #Moderately controlled -I am going to send A1c-if it is high will start on insulin scale coverage ID: #Cultures negative so far -Covered with vancomycin and Zosyn-given sputum cultures growing gram-positive cocci, and chains clusters and gram-negative rods Code Status: DNI Disposition: ICU Critically ill: Yes MD discussed with: Hospitalist, RN, RT ICU CHECKLIST: Problem list updated Verbal orders reviewed and signed Analgesia: N/A Glycemic Control: N/A Nutrition: Pur?ed diet Restraint Renewal (within 24 hrs): N/A Ulcer Prophylaxis: PPI Chemical Thromboprophylaxis: Prophylaxis: Lovenox Mechanical Thromboprophylaxis: SCD Need for Central line: N/A Need for Ramos catheter: N/A Case discussed with RN, consultants and family or surrogate(s) and Dr Consult Attestations Medical Necessity Statement: Acute hypoxic respiratory failure and COVID-19 pneumonia in patient with severe underlying emphysema fibrosis-closely monitoring in ICU Time Spent in Patient Care: Greater than 35 minutes (>than 50% of time spent in counselling and/or direct pt care on unit) . Critical Care Time: The high probability of a clinically significant, sudden or life threatening deterioration of the patient's [pulmonary] system(s) required my full and direct attention, intervention and personal management. The critical care time is as shown. This time is in addition to time spent performing any reported procedures but includes the following: [x] Data and vital sign review and interpretation [x] Patient assessment, examination and intervention [x] Documentation [x] Medication orders and management Critical Care Time (min): 69 Coding Level of Care Code Acute Code for [facility] Diagnoses COPD (chronic obstructive pulmonary disease) J44.9 Acute respiratory failure with hypoxia J96.01 Time Spent (min) 69
--- NOTE | 2023-02-15 07:13 | P.PN_ITS ---
Subjective Subjective: -Juan was on BiPAP last night Requiring 55% -He was Switch you to high flow nasal cannula andmarginally being managed on high flow oxygen at 100% FiO2 with sats around 88 to 92%. -Today morning he was having his breakfast -I have discussed about intubation if things were to get worse-He feels better now this morning And does not want at this point.Said his daughter is going to come Today and we can discuss with her - He denies any pain. -Otherwise labs showed worsening WBC with left-sided shift Medications: Reviewed: Yes Vitals/I&O/Wt Last Vital Signs Temp 97.6 F 02/15/23 05:00 Pulse 94 02/15/23 06:12 Resp 21 H 02/15/23 06:00 BP 106/57 02/15/23 06:00 Pulse Ox 88 L 02/15/23 06:12 O2 Del Method BiPAP 02/15/23 06:00 O2 Flow Rate 50 02/14/23 19:41 FiO2 55 02/15/23 06:12 02/14/23 02/15/23 02/15/23 22:59 06:59 14:59 Intake Total 50 / 700 Output Total 720 / 720 400 / 1120 Balance -670 / -20 -400 / -420 Weight last 48 hrs Weight 190 lb 6 oz Weight 183 lb Weight 207 lb Physical Exam Narrative: General: alert, NAD HEENT: conj clear, EOMI, PERRL, mmm, Neck: supple, no meningismus Heme: no cervical LAP Respiratory: Inspection: No visible deformity of the chest wall Palpation: Trachea is mildly deviated to the right, bilateral symmetric expansion Percussion: Bilateral tympanic percussion note both anterior and posteriorly Auscultation: Reduced breath sounds bilaterally Cardiovascular: rrr, nl s1s2, no mrg Abdomen: soft, nt, nd, no r/g, bs+ Extremities: pulses +, no edema, no c/c : no CVA tenderness Skin: intact, no rash MSK: no back or neck pain Neurologic: grossly intact Urinary Catheter Management: Coude: Cath Placed During This Visit: yes Reason for Continuing Indwelling Catheter: Accurate Measurement of Urinary O utput in Critically Ill Patients Urinary Catheter Date of Insertion: 02/13/23 Urinary Catheter Time of Insertion: 21:30 Data 02/15/23 04:30 02/15/23 04:30 Micro: Microbiology 02/13/23 10:40 Blood Culture - Preliminary Blood NEGATIVE TO DATE 02/13/23 19:32 Gram Stain - Final Sputum - Expectorated Sputum 02/13/23 09:53 Blood Culture - Preliminary Blood A&P Assessment and plan (1) COPD (chronic obstructive pulmonary disease): (2) Acute respiratory failure with hypoxia: Plan 67-year-old male with past medical history of severe centrilobular emphysema with fibrosis currently admitted to ICU for hypoxic respiratory failure requiring high flow nasal cannula. NEURO: #No issues with mentation PULM: #Acute hypoxic respiratory failure secondary to COVID-19 pneumonia #Severe centrilobular emphysema with fibrosis -CTA ruled out PE showed severe emphysematous changes as well as bilateral patchy airspace infiltrates -Continue oxygen support-currently requiring HFNC 40 L 55%-Target saturation 85 to 88% -Remdesivir for 5 days; dexamethasone 6 mg IV push daily -Scheduled nebulizations with DuoNeb as well as Pulmicort -Continue broad-spectrum antibiotic Zosyn as well as vancomycin -There is improvement in CRP CVS: #? pulmonary hypertension #Hemodynamically stable -CV echo performed-report pending GI: #Soft pureed diet with aspiration precautions #GI prophylaxis: PPI #Deranged LFTs likely secondary to COVID-continue monitoring RENAL: #PAGE-likely secondary to COVID HEM: #No issues #Elevated D-dimer-CTA negative for PE and bilateral venous Dopplers negative for DVT ENDO: #Moderately controlled -I am going to send A1c-if it is high will start on insulin scale coverage ID: #Cultures negative so far -Covered with vancomycin and Zosyn-given sputum cultures growing gram-positive cocci, and chains clusters and gram-negative rods Code Status: DNI Disposition: ICU Critically ill: Yes MD discussed with: Hospitalist, RN, RT ICU CHECKLIST: Problem list updated Verbal orders reviewed and signed Analgesia: N/A Glycemic Control: N/A Nutrition: Pur?ed diet Restraint Renewal (within 24 hrs): N/A Ulcer Prophylaxis: PPI Chemical Thromboprophylaxis: Prophylaxis: Lovenox Mechanical Thromboprophylaxis: SCD Need for Central line: N/A Need for Ramos catheter: N/A Case discussed with RN, consultants and family or surrogate(s) and Dr Payne Medical Necessity Statement*: Needs continued hospital stay, secondary to severe COVID now requiring BiPAP Critical Care Time: The high probability of a clinically significant, sudden or life threatening deterioration of the patient's [pulmonary, renal, system(s) required my full and direct attention, intervention and personal management. The critical care time is as shown. This time is in addition to time spent performing any reported procedures but includes the following: [x] Data and vital sign review and interpretation [x] Patient assessment, examination and intervention [x] Documentation [x] Medication orders and management Critical Care Time (min): 44 Coding Level of Care Code Acute Code for [facility] Diagnoses COPD (chronic obstructive pulmonary disease) J44.9 Acute respiratory failure with hypoxia J96.01 Time Spent (min) 44
[2023-02-15 07:48] LABS: Estmated Average Glucose 103; Hemoglobin A1C 5.2 % (4.0-6.0)
[2023-02-15] MEDS: budesonide 0.5 mg/2 mL Neb INHALATION ×2 (08:06→21:54)
[2023-02-15] MEDS: dexamethasone 10 mg/mL INJ 6 MG IVP (08:40)
[2023-02-15] MEDS: atorvastatin 40 mg Tablet 20 MG PO (08:40)
[2023-02-15] MEDS: levothyroxine 50 mcg Tablet PO (08:40)
[2023-02-15] MEDS: pantoprazole 40 mg SDV IVP (08:41)
[2023-02-15] MEDS: lactulose oral liq 20 gm/30 mL UDC PO (08:41)
[2023-02-15] MEDS: montelukast sodium 10 mg Tablet PO (08:41)
--- NOTE | 2023-02-15 10:31 | PM.PN ---
Subjective Subjective: Juan is on BiPAP when I saw him. He indicates he wants some coffee. Denies any pain. Medications: Reviewed: Yes Vitals/I&O/Wt Last Vital Signs Temp 97.6 F 02/15/23 05:00 Pulse 88 02/15/23 09:44 Resp 18 02/15/23 09:00 BP 98/48 02/15/23 09:00 Pulse Ox 89 L 02/15/23 09:44 O2 Del Method Heated High Flow 02/15/23 08:15 O2 Flow Rate 60 02/15/23 08:15 FiO2 55 02/15/23 09:44 02/14/23 02/15/23 02/15/23 22:59 06:59 14:59 Intake Total 50 / 700 50 / 750 250 / 250 Output Total 720 / 720 400 / 1120 Balance -670 / -20 -350 / -370 250 / 250 Weight last 48 hrs Weight 86.353 kg Weight 83.007 kg Physical Exam Narrative: General exam white male, on BiPAP, tachypnea noted Neck is supple no lymphadenopathy thyromegaly Cardiovascular regular rate and rhythm, without murmur Lungs diminished breath sounds bilaterally. No wheezing or rhonchi Abdomen is soft, positive bowel sounds. No obvious organomegaly. exam Ramos noted. Flavia urine Extremities show trace edema bilaterally. No cyanosis or clubbing. Urinary Catheter Management: Coude: Cath Placed During This Visit: yes Reason for Continuing Indwelling Catheter: Accurate Measurement of Urinary Output in Critically Ill Patients Urinary Catheter Date of Insertion: 02/13/23 Urinary Catheter Time of Insertion: 21:30 Data 02/15/23 04:30 02/15/23 04:30 Micro: Microbiology 02/13/23 10:40 Blood Culture - Preliminary Blood NEGATIVE TO DATE 02/13/23 19:32 Gram Stain - Final Sputum - Expectorated Sputum 02/13/23 09:53 Blood Culture - Preliminary Blood A&P Assessment and plan (1) Pneumonia due to COVID-19 virus: Patient presents with COVID-19 pneumonia, with significant hypoxic respiratory failure. Continue remdesivir. Plan on 5 days of treatment. Continue dexamethasone 6 mg IV every 24 hours Concern of superimposed pneumonia, that may be bacterial. Continue Zosyn and vancomycin. MRSA PCR negative. Sputum has some gram-positive cocci. Blood culture 1/ bottle gram-positive cocci, pending identification. I suspect this is contaminant. If concerning organism will reculture. He has had no fevers, is slightly high as would be expected on dexamethasone Continue budesonide twice daily Continue DuoNeb every 6 hours Fluids have been discontinued. Overall about a liter up, likely warranted secondary to dehydration on admission Currently requiring BiPAP, and has weaned down to an FiO2 of 55%. Still high risk for decompensation. There is now some consideration of whether he might want to be intubated. Discussion is occurring with family and pulmonary. Now refusing consideration of intubation. Appreciate pulmonary consultation Inflammatory markers higher today. I will ask pulmonary if they believe baricitinib, or tocilizumab is warranted. However, these may be contraindicated if bacterial infection is thought likely No evidence of pulmonary embolism on CTA Continue Acapella, incentive spirometry Prone if possible CBC, CMP in the morning Currently appears stable, but certainly no improvement from yesterday. Await echocardiogram. This has been taken. Done secondary to elevated BNP (2) Acute respiratory failure with hypoxia: See notations above. Currently on BiPAP. Wean as tolerated. (3) Metabolic acidosis: Patient presents with metabolic acidosis. This is likely secondary to dehydration and renal dysfunction This has improved (4) Transaminitis: Likely secondary to COVID-19 pneumonia. Improved. Hepatitis panel negative (5) Acute kidney injury: Stable. Repeat creatinine tomorrow Avoid renal toxic medication Avoid anti-inflammatories (6) Moderate protein-calorie malnutrition: Patient with moderate protein calorie malnutrition prior to getting COVID. May also be secondary to liver disease Encourage appropriate p.o. intake assess illness improves. (7) Liver mass: Patient with history of liver mass, still pending investigation. He relates he has been sick often when they were trying to schedule biopsy. He will need this followed up as an outpatient. T9 demonstrates a compression fracture on CTA, with possible pathologic lesion. This will also need to be followed up as an outpatient. (8) Esophageal varices: Patient has history of esophageal varices, with bleeding in the past. He has had banding in the past and has had a TIPS procedure. No active bleeding currently. Secondary to elevated dimer, COVID, Lovenox was initiated. Monitor closely for any bleeding. (9) Hepatic encephalopathy: Secondary to the patient's dehydration reduce his dose of lactulose. Monitor closely for hepatic encephalopathy clinically. (10) COPD (chronic obstructive pulmonary disease): Patient with acute COPD exacerbation secondary to COVID. Continue dexamethasone, pulmonary toilet. Plan Multiple other medical problems as outlined in past medical history Full code SCDs for DVT prophylaxis Protonix for GI prophylaxis Attestations Medical Necessity Statement*: Needs continued hospital stay for support with BiPAP, IV antibiotics for pneumonia, antiviral and dexamethasone for COVID. Diagnoses Pneumonia due to COVID-19 virus U07.1; J12.82 Acute respiratory failure with hypoxia J96.01 Metabolic acidosis E87.20 Transaminitis R74.01 Acute kidney injury N17.9 Moderate protein-calorie malnutrition E44.0 Liver mass R16.0 Esophageal varices I85.00 Hepatic encephalopathy K76.82 COPD (chronic obstructive pulmonary disease) J44.9 Time Spent (min) 36
[2023-02-15] MEDS: remdesivir 100 MG in sodium chloride 0.9% (100 ml) 80 ML IV (13:05)
--- NOTE | 2023-02-15 18:02 | PC.NURSE ---
Shift summary: on BiPap most of morning, tolorated HHF majority of evening, educated on oxygen and energy conservation due to decreased oxygen reserve. tolerated thickened liquids well, input and out put improved. no complaints at this time
[2023-02-15] MEDS: enoxaparin 40 mg/0.4 mL Syringe SUBCUT (22:34)
[2023-02-16] VITALS (32 sets, daily range): BP systolic 96–128; BP diastolic 54–75; PULSE 83–122; RESP 17–31; TEMP 35.6–36.4; O2SAT 83–97
[2023-02-16] MEDS: piperacillin-tazobactam 3.375 GM in sodium chloride 0.9% (plus) 50 ML IV ×3 (01:06→16:53)
[2023-02-16] MEDS: ipratropium-albuterol 3 mL Neb INHALATION ×4 (03:18→20:00)
[2023-02-16 04:38] LABS: Basophils % 0.1 %; Hematocrit 40.5 % (37-53); Lymphocytes # 0.8 10^3/uL (0.8-4.8); Mean Corpuscular HGB Conc 32.8 g/dL (30-55); Mean Corpuscular Hemoglobin 30.6 pg (27-33); Mean Corpuscular Volume 93.3 fl (82-101); Mean Platelet Volume 9.4 fL (7.4-10.4); Monocytes # 0.6 10^3/uL (0.2-0.9); Monocytes % 4.6 %; Neutrophils % 88.4 %; Nucleated Red Blood Cells % 0 %; Platelet Count 260 10^3/cmm (157-399); Red Blood Count 4.34 10^6/uL (3.85-5.65); Red Cell Distribution Width 16.7 % (12.1-15.1); White Blood Count 13.57 10^3/uL (3.29-11.43)
[2023-02-16 04:58] LABS: Alanine Aminotransferase 28 U/L (0-41); Albumin Level 2.8 g/dL (3.5-5.2); Alkaline Phosphatase 148 U/L (40-130); Aspartate Amino Transferase 53 U/L (0-40); Blood Urea Nitrogen 42 mg/dL (8-23); Calcium 8.2 mg/dL (8.5-10.5); Carbon Dioxide 20 mmol/L (22-29); Chloride 118 mmol/L (98-107); Globulin 5.2 g/dL (1.3-4.6); Glomerular Filtration Rate 74.3 mL/min (90-130); Glucose 117 mg/dL (65-115); Magnesium 2.9 mg/dL (1.7-2.3); Osmolality Calculated 316 mOsm/kg (285-295); Sodium 147 mmol/L (136-145); Total Bilirubin 1.1 mg/dL (0.15-1.2)
[2023-02-16 05:06] LABS: Anion Gap 13.6 (5-19); Potassium 4.6 mmol/L (3.5-5.1)
[2023-02-16] MEDS: budesonide 0.5 mg/2 mL Neb INHALATION ×2 (08:46→20:00)
--- NOTE | 2023-02-16 09:17 | P.PN_ITS ---
Subjective Subjective: Juan seems to be more interactive today. He denies any specific complaints. When I saw him he was on BiPAP around 85% FiO2. Denies any chest discomfort. Medications: Reviewed: Yes Vitals/I&O/Wt Last Vital Signs Temp 97.3 F L 02/16/23 04:00 Pulse 102 H 02/16/23 08:46 Resp 26 H 02/16/23 08:46 BP 118/65 02/16/23 06:00 Pulse Ox 90 02/16/23 08:46 O2 Del Method Heated High Flow 02/16/23 08:46 O2 Flow Rate 60 02/16/23 08:46 FiO2 100 02/16/23 08:46 02/15/23 02/16/23 02/16/23 22:59 06:59 14:59 Intake Total 350 / 650 1150 / 1800 Output Total 1225 / 1225 450 / 1675 Balance -875 / -575 700 / 125 Weight last 48 hrs Weight 84.425 kg Weight 86.353 kg Physical Exam Narrative: General exam white male, on BiPAP, appears more comfortable today Neck is supple no lymphadenopathy thyromegaly Cardiovascular regular rate and rhythm, without murmur Lungs diminished breath sounds bilaterally. No wheezing or rhonchi Abdomen is soft, positive bowel sounds. No obvious organomegaly. exam Ramos noted. Extremities no cyanosis clubbing or edema Urinary Catheter Management: Coude: Cath Placed During This Visit: yes Reason for Continuing Indwelling Catheter: Accurate Measurement of Urinary Output in Critically Ill Patients Urinary Catheter Date of Insertion: 02/13/23 Urinary Catheter Time of Insertion: 21:30 Data 02/16/23 04:19 02/16/23 04:19 Other Labs: Liver function tests improved from admission Sputum culture coag positive Staphylococcus, blood culture 1/4 bottles gram- positive cocci in clusters, suspect contamination. Awaiting identification. Echocardiogram reading pending. Preliminary demonstrates moderate aortic stenosis, preserved EF Micro: Microbiology 02/13/23 19:32 Gram Stain - Final Sputum - Expectorated Sputum Sputum Culture - Preliminary Coag positive Staphylococcus A&P Assessment and plan (1) Pneumonia due to COVID-19 virus: Patient presents with COVID-19 pneumonia, with significant hypoxic respiratory failure. Continue remdesivir. Plan on 5 days of treatment. Continue dexamethasone 6 mg IV every 24 hours Concern of superimposed pneumonia, that may be bacterial. Continue Zosyn and vancomycin. MRSA PCR negative. Sputum coagulation positive staphylococci. Blood culture 06/08 bottle gram-positive cocci, pending identification. I suspect this is contaminant. If concerning organism will reculture. He has not had any fevers. Continue budesonide twice daily Continue DuoNeb every 6 hours Approximately 1.4 L off since admission. He does not appear dehydrated currently. Sodium is slightly high. Still requiring a significant amount of FiO2, will try to wean today. Placed on high flow. Appreciate pulmonary consultation Currently still no intubation, but will need to be revisited should he decompensate Baricitinib, tocilizumab contraindicated secondary to concern of bacterial infection No evidence of pulmonary embolism on CTA Continue Acapella, incentive spirometry Prone if possible Repeat laboratory in the morning EF preserved, moderate aortic stenosis, awaiting final report of echo (2) Acute respiratory failure with hypoxia: See notations above. Currently on BiPAP. Wean as tolerated. (3) Metabolic acidosis: Patient presents with metabolic acidosis. This is likely secondary to dehydration and renal dysfunction This has improved (4) Transaminitis: Likely secondary to COVID-19 pneumonia. Improved. Hepatitis panel negative (5) Acute kidney injury: Stable. Repeat creatinine tomorrow Avoid renal toxic medication Avoid anti-inflammatories (6) Moderate protein-calorie malnutrition: Patient with moderate protein calorie malnutrition prior to getting COVID. May also be secondary to liver disease Encourage appropriate p.o. intake assess illness improves. (7) Liver mass: Patient with history of liver mass, still pending investigation. He relates he has been sick often when they were trying to schedule biopsy. He will need this followed up as an outpatient. T9 demonstrates a compression fracture on CTA, with possible pathologic lesion. This will also need to be followed up as an outpatient. (8) Esophageal varices: Patient has history of esophageal varices, with bleeding in the past. He has had banding in the past and has had a TIPS procedure. No active bleeding currently. Secondary to elevated dimer, COVID, Lovenox was initiated. Monitor closely for any bleeding. (9) Hepatic encephalopathy: Secondary to the patient's dehydration reduce his dose of lactulose. Monitor closely for hepatic encephalopathy clinically. (10) COPD (chronic obstructive pulmonary disease): Patient with acute COPD exacerbation secondary to COVID. Continue dexamethasone, pulmonary toilet. Plan Multiple other medical problems as outlined in past medical history Full code SCDs for DVT prophylaxis Protonix for GI prophylaxis Attestations Medical Necessity Statement*: Needs continued hospitalization for IV antibiotics secondary to pneumonia, as well as antiviral and dexamethasone for COVID and this patient still requiring a tremendous amount of FiO2. Diagnoses Pneumonia due to COVID-19 virus U07.1; J12.82 Acute respiratory failure with hypoxia J96.01 Metabolic acidosis E87.20 Transaminitis R74.01 Acute kidney injury N17.9 Moderate protein-calorie malnutrition E44.0 Liver mass R16.0 Esophageal varices I85.00 Hepatic encephalopathy K76.82 COPD (chronic obstructive pulmonary disease) J44.9 Time Spent (min) 31
--- NOTE | 2023-02-16 09:54 | PC.SOCIAL ---
IMM update IMM updated. Copy Pg 2 at bedside. Initialled, dated, timed, and placed in chart.
[2023-02-16] MEDS: levothyroxine 50 mcg Tablet PO (10:01)
[2023-02-16] MEDS: montelukast sodium 10 mg Tablet PO (10:01)
[2023-02-16] MEDS: atorvastatin 40 mg Tablet 20 MG PO (10:01)
[2023-02-16] MEDS: lactulose oral liq 20 gm/30 mL UDC PO (10:02)
[2023-02-16] MEDS: dexamethasone 10 mg/mL INJ 6 MG IVP (10:02)
[2023-02-16] MEDS: pantoprazole 40 mg SDV IVP (10:02)
[2023-02-16] MEDS: remdesivir 100 MG in sodium chloride 0.9% (100 ml) 80 ML IV (12:29)
--- NOTE | 2023-02-16 16:19 | P.PN_ITS ---
Subjective Subjective: Clinically unchanged Still requiring HFNC 100% saturating 87 to 88% Able to eat/drink Sputum culture grew MRSA-patient already covered with vancomycin Had extensive discussion with patient, his daughter and with his sister over phone regarding goals of care- updated overall prognosis and informed that possibility of clinical deterioration leading to respiratory failure; however With preemptive intubation there is no guarantee that patient would be extubated given his significant underlying pulmonary emphysema and fibrosis.family verbalized understanding and agreed for intubation as a last resort when it is absolutely necessary. For now patient has been maintaining saturations 87 to 88% on high flow 100% and currently being treated with vancomycin for possible MRSA pneumonia and clinically looks stable so we will continue to monitor. Medications: Reviewed: Yes Vitals/I&O/Wt Last Vital Signs Temp 97.3 F L 02/16/23 04:00 Pulse 91 02/16/23 14:00 Resp 19 H 02/16/23 14:00 BP 102/58 02/16/23 14:00 Pulse Ox 93 02/16/23 14:00 O2 Del Method Heated High Flow 02/16/23 13:55 O2 Flow Rate 60 02/16/23 13:55 FiO2 100 02/16/23 13:55 02/16/23 02/16/23 02/16/23 06:59 14:59 22:59 Intake Total 1150 / 1900 300 / 300 Output Total 450 / 1675 450 / 450 Balance 700 / 225 -150 / -150 Weight last 48 hrs Weight 186 lb 2 oz Weight 190 lb 6 oz Physical Exam Narrative: General: alert, NAD HEENT: conj clear, EOMI, PERRL, mmm, Neck: supple, no meningismus Heme: no cervical LAP Respiratory: Inspection: No visible deformity of the chest wall Palpation: Trachea is mildly deviated to the right, bilateral symmetric expansion Percussion: Bilateral tympanic percussion note both anterior and posteriorly Auscultation: Reduced breath sounds bilaterally Cardiovascular: rrr, nl s1s2, no mrg Abdomen: soft, nt, nd, no r/g, bs+ Extremities: pulses +, no edema, no c/c : no CVA tenderness Skin: intact, no rash MSK: no back or neck pain Neurologic: grossly intact Urinary Catheter Management: Coude: Cath Placed During This Visit: yes Reason for Continuing Indwelling Catheter: Accurate Measurement of Urinary Output in Critically Ill Patients Urinary Catheter Date of Insertion: 02/13/23 Urinary Catheter Time of Insertion: 21:30 Data 02/16/23 04:19 02/16/23 04:19 Micro: Microbiology 02/13/23 19:32 Gram Stain - Final Sputum - Expectorated Sputum Sputum Culture - Final Methicillin Resis Staph Aureus A&P Assessment and plan (1) COPD (chronic obstructive pulmonary disease): (2) Acute respiratory failure with hypoxia: (3) MRSA pneumonia: (4) Counseling regarding goals of care: Plan 67-year-old male with past medical history of severe centrilobular emphysema with fibrosis currently admitted to ICU for hypoxic respiratory failure secondary to COVID-19 pneumonia/MRSA pneumonia requiring high flow nasal cannula. NEURO: #No issues with mentation PULM: #Acute hypoxic respiratory failure secondary to COVID-19 pneumonia #Severe centrilobular emphysema with fibrosis -CTA ruled out PE showed severe emphysematous changes as well as bilateral patchy airspace infiltrates -Continue oxygen support-currently requiring HFNC 40 L 55%-Target saturation 85 to 88% -Remdesivir for 5 days; dexamethasone 6 mg IV push daily -Scheduled nebulizations with DuoNeb as well as Pulmicort -Continue broad-spectrum antibiotic Zosyn as well as vancomycin -There is improvement in CRP CVS: #? pulmonary hypertension #Hemodynamically stable -CV echo performed-report pending GI: #Soft pureed diet with aspiration precautions #GI prophylaxis: PPI #Deranged LFTs likely secondary to COVID-continue monitoring RENAL: #PAGE-likely secondary to COVID HEM: #No issues #Elevated D-dimer-CTA negative for PE and bilateral venous Dopplers negative for DVT ENDO: #Moderately controlled - A1c 5.2 ID: # MRSA pneumonia -Covered with vancomycin and Zosyn-given sputum cultures growing MRSA Code Status: DNI Disposition: ICU Critically ill: Yes MD discussed with: Hospitalist, RN, RT ICU CHECKLIST: Problem list updated Verbal orders reviewed and signed Analgesia: N/A Glycemic Control: N/A Nutrition: Pur?ed diet Restraint Renewal (within 24 hrs): N/A Ulcer Prophylaxis: PPI Chemical Thromboprophylaxis: Prophylaxis: Lovenox Mechanical Thromboprophylaxis: SCD Need for Central line: N/A Need for Ramos catheter: N/A Case discussed with RN, consultants and family or surrogate(s) and Dr Robbins goals of care:Had extensive discussion with patient, his daughter and with his sister over phone regarding goals of care- updated overall prognosis and informed that possibility of clinical deterioration leading to respiratory failure; however With preemptive intubation there is no guarantee that patient would be extubated given his significant underlying pulmonary emphysema and fibrosis.family verbalized understanding and agreed for intubation as a last resort when it is absolutely necessary. For now patient has been maintaining saturations 87 to 88% on high flow 100% and currently being treated with vancomycin for possible MRSA pneumonia and clinically looks stable so we will continue to monitor. Accordingly was made full code Attestations Medical Necessity Statement*: Needs continued hospital stay, secondary to severe COVID now requiring BiPAP Time Spent in Patient Care: Greater than 35 minutes (>than 50% of time spent in counselling and/or direct pt care on unit) . Critical Care Time: The high probability of a clinically significant, sudden or life threatening deterioration of the patient's [pulmonary, renal, system(s) required my full and direct attention, intervention and personal management. The critical care time is as shown. This time is in addition to time spent performing any reported procedures but includes the following: [x] Data and vital sign review and interpretation [x] Patient assessment, examination and intervention [x] Documentation [x] Medication orders and management Critical Care Time (min): 57 Coding Level of Care Code Critical Care >/= 30 minutes Diagnoses COPD (chronic obstructive pulmonary disease) J44.9 Acute respiratory failure with hypoxia J96.01 MRSA pneumonia J15.212 Counseling regarding goals of care Z71.89 Time Spent (min) 57
[2023-02-16 16:51] LABS: Vancomycin Trough 9.5 ug/mL (10-15)
[2023-02-16] MEDS: vancomycin 1,500 MG/300 ML PIGGYBACK 200 MG IV (16:52)
[2023-02-16] MEDS: enoxaparin 40 mg/0.4 mL Syringe SUBCUT (22:06)
[2023-02-16] MEDS: diphenhydrAMINE 50 mg/mL SDV 1mL 25 MG IVP (22:06)
[2023-02-16] MEDS: LORazepam 2 mg/mL INJ 1 mL 0.5 MG IVP (23:16)
[2023-02-17] VITALS (74 sets, daily range): BP systolic 83–160; BP diastolic 58–135; PULSE 71–130; RESP 17–29; TEMP 36.3–36.6; O2SAT 84–97
[2023-02-17] MEDS: piperacillin-tazobactam 3.375 GM in sodium chloride 0.9% (plus) 50 ML IV ×3 (01:13→17:11)
[2023-02-17] MEDS: ipratropium-albuterol 3 mL Neb INHALATION ×4 (02:44→19:52)
[2023-02-17 03:15] LABS: ABG PCO2 30.1 mmHg (35-45); ABG PH Result 7.45 (7.35-7.45); Arterial Blood Gas Hematocrit 44.7 % (42-52); Blood Gas Sample Site Brachial, right; Blood Gas Sample Type MixedVenous; Carboxyhemoglobin 1.4 %THgb (0.4-20.1); HCO3 ABG 20.9 mmol/L (22-26); HGB O2 Sat 66.8 % (95-100); Ionized Calcium Level - ABG 1.2 mmol/L (1.1-1.4); Methemoglobin 0.5 % (0.4-1.5); Oxygen Device BIPAP; Potassium Level - ABG 4.5 mmol/L (3.5-5.0); Total Hemoglobin 14.6 g/dL (14-18)
[2023-02-17 04:21] LABS: Basophils % 0.1 %; Hematocrit 41.6 % (37-53); Lymphocytes # 0.5 10^3/uL (0.8-4.8); Lymphocytes % 4.3 %; Mean Corpuscular HGB Conc 32.5 g/dL (30-55); Mean Corpuscular Hemoglobin 30.3 pg (27-33); Mean Corpuscular Volume 93.5 fl (82-101); Mean Platelet Volume 9.7 fL (7.4-10.4); Monocytes # 0.8 10^3/uL (0.2-0.9); Monocytes % 7.1 %; Neutrophils # 10.19 10^3/uL (1.8-7.7); Neutrophils % 87.8 %; Nucleated Red Blood Cells % 0 %; Platelet Count 189 10^3/cmm (157-399); Red Blood Count 4.45 10^6/uL (3.85-5.65); Red Cell Distribution Width 16.5 % (12.1-15.1)
[2023-02-17 04:42] LABS: Alanine Aminotransferase 27 U/L (0-41); Albumin Level 2.8 g/dL (3.5-5.2); Alkaline Phosphatase 157 U/L (40-130); Anion Gap 14.5 (5-19); Aspartate Amino Transferase 42 U/L (0-40); Blood Urea Nitrogen 36 mg/dL (8-23); C Reactive Protein 31.2 mg/L (0.0-4.9); Calcium 8.3 mg/dL (8.5-10.5); Carbon Dioxide 21 mmol/L (22-29); Chloride 119 mmol/L (98-107); Globulin 4.9 g/dL (1.3-4.6); Glomerular Filtration Rate 74.3 mL/min (90-130); Glucose 160 mg/dL (65-115); Osmolality Calculated 322 mOsm/kg (285-295); Potassium 4.5 mmol/L (3.5-5.1); Sodium 150 mmol/L (136-145); Total Bilirubin 1.3 mg/dL (0.15-1.2); Total Protein 7.7 g/dL (6.6-8.7)
[2023-02-17] MEDS: vancomycin 1,250 MG/250 ML PIGGYBACK 250 MG IV ×2 (05:40→17:10)
[2023-02-17] MEDS: LORazepam 2 mg/mL INJ 1 mL 1 MG IM (06:45)
--- NOTE | 2023-02-17 07:12 | XR_ITS ---
WS: [id number] Exam: XR chest 1V portable [id number] Date/Time of Exam: 02/17/2023 7:27 AM Reason For Exam: dyspnea Comparison 02/13/2023. The lungs are hyperinflated. Previously noted LEFT lower lobe infiltrate has resolved. Extensive inte rstitial fibrosis and honeycombing throughout both lungs. Normal cardiomediastinal silhouette. Again noted is an ill-defined pulmonary density in the mid RIGHT lung unchanged in appearance. No pleural e ffusions. Bony structures are intact. Monitoring leads superimpose the chest. IMPRESSION: 1. Resolved LEFT lower lobe infiltrate since previous study. No other significant change.
--- NOTE | 2023-02-17 07:25 | PC.NURSE ---
Upon shift change, pt noted to be destating in the low 80% and noted to be tachycardic. Dr. Robbins contacted family and Dr. Mejia to prepare for possible intubation due to patient?s decompenstating status, see documented vital signs and bipap settings. Patient?s daughter arrived to bedside and talked to Mr. Doherty. This nurse rounded in patient?s room to confirm intubation, daughter stated, ?do not intubate him unless he codes.? Patient then followed this nurse outside of the room and shouted to ICU staff, Dr. Mejia, and Dr. Robbins- ?I want you all to know that I am pissed off and you should be ashamed of yourselves.?. Dr. Mejia then went into patient?s room to speak with daughter.
--- NOTE | 2023-02-17 08:10 | PC.NURSE ---
Shortly after, patient?s daughter asked for help getting Mr. Doherty to the bathroom. This nurse and nurse student, Radha went to assist getting pt to the bedpan. This nurse educated daughter that patient could not get out of bed with an O2 of 80%, that a bed camacho would need to be used. As I was guiding Mr. Doherty through to steps of getting on the bed camacho, patient?s daughter stated, ?don?t talk to him, just do it.?
[2023-02-17 08:40] LABS: Glucose Point of Care 127 mg/dL (70-110)
[2023-02-17] MEDS: dexamethasone 10 mg/mL INJ 6 MG IVP (08:41)
[2023-02-17] MEDS: pantoprazole 40 mg SDV IVP (08:42)
[2023-02-17] MEDS: dextrose 5% 1,000 ML 50 ML IV (08:44)
[2023-02-17] MEDS: dexmedetomidine 400 MCG in sodium chloride 0.9% (100 ml) 100 ML IV (08:45)
[2023-02-17] MEDS: budesonide 0.5 mg/2 mL Neb INHALATION ×2 (08:56→19:52)
--- NOTE | 2023-02-17 10:33 | PM.PN ---
Subjective Subjective: I have seen Mr. 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 There is concern of worsening hypoxia, and he had been on 100% FiO2 by BiPAP most of the night. When I arrived he was tachypneic, with heart rate of 120, with a sat around 86% on BiPAP. I called family, and explained to them the situation and need for intubation. Stripe Matcher came in to facilitate this, even though he was not on-call, but there was some concern from family that patient was very anxious and this was contributing to his decompensation. They asked that we hold off on intubation, till they could regroup, calm the patient. They also asked consideration of transfer which was arranged but they have since ask us to hold off until all family members could be present to determine the best course of action. Patient himself has been getting Ativan, Precedex and although can answer some questions I do not have confidence that he can understand the implications of his decisions currently. Medications: Reviewed: Yes Vitals/I&O/Wt Last Vital Signs Temp 97.3 F L 02/17/23 07:00 Pulse 124 H 02/17/23 09:00 Resp 27 H 02/17/23 08:30 BP 127/76 02/17/23 09:00 Pulse Ox 88 L 02/17/23 09:00 O2 Del Method BiPAP 02/17/23 08:30 O2 Flow Rate 60 02/16/23 23:30 FiO2 100 02/17/23 08:30 02/16/23 02/17/23 02/17/23 22:59 06:59 14:59 Intake Total 980 / 1430 300 / 1730 2.107 / 2.107 Output Total 1350 / 1800 400 / 2200 Balance -370 / -370 -100 / -470 2.107 / 2.107 Weight last 48 hrs Weight 83.943 kg Weight 84.425 kg Physical Exam Narrative: General exam white male, on BiPAP, somewhat agitated. Precedex has been initiated. Neck is supple no lymphadenopathy thyromegaly Cardiovascular regular rate and rhythm, without murmur Lungs diminished breath sounds bilaterally. No wheezing or rhonchi Abdomen is soft, positive bowel sounds. No obvious organomegaly. exam Ramos noted. Extremities no cyanosis clubbing or edema Urinary Catheter Management: Coude: Cath Placed During This Visit: yes Reason for Continuing Indwelling Catheter: Accurate Measurement of Urinary Output in Critically Ill Patients Urinary Catheter Date of Insertion: 02/13/23 Urinary Catheter Time of Insertion: 21:30 Data 02/17/23 04:01 02/17/23 04:01 Other Labs: Chest x-ray done today which I reviewed demonstrates no pneumothorax, persistent infiltrates. Sputum culture was positive for MRSA. Micro: Microbiology 02/13/23 19:32 Gram Stain - Final Sputum - Expectorated Sputum Sputum Culture - Final Methicillin Resis Staph Aureus A&P Assessment and plan (1) Pneumonia due to COVID-19 virus: Patient presents with COVID-19 pneumonia, with significant hypoxic respiratory failure. Continue remdesivir. Plan on 5 days of treatment. Continue dexamethasone 6 mg IV every 24 hours Concern of superimposed pneumonia, sputum positive for MRSA. Continue Zosyn and vancomycin. Blood culture 1/ bottle gram-positive cocci, pending identification. I suspect this is contaminant. If concerning organism will reculture. He has not had any fevers. Continue budesonide twice daily Continue DuoNeb every 6 hours Approximately 1.0 L up since admission. He does not appear dehydrated currently. Sodium is climbed slightly higher. We will add D5W at 50 cc an hour and check sodium later this afternoon. May need to evaluate for fluids are being given and his antibiotic, and drips His FiO2 requirement is 100% on BiPAP. I feel it is likely he will need intubated soon. Family is trying to hold off, with the concern that he may never be able to be extubated with his chronic lung disease. I have spent a significant amount of time with him today describing the risks and benefits of this, the potential benefits and risks of transfer as well. Appreciate pulmonary consultation Baricitinib, tocilizumab contraindicated secondary to concern of bacterial infection No evidence of pulmonary embolism on CTA Continue Acapella, incentive spirometry Prone if possible Repeat laboratory in the morning EF preserved, moderate aortic stenosis, awaiting final report of echo (2) Acute respiratory failure with hypoxia: See notations above. Currently on BiPAP. Wean as tolerated. (3) Metabolic acidosis: Patient presents with metabolic acidosis. This is likely secondary to dehydration and renal dysfunction This has improved (4) Transaminitis: Likely secondary to COVID-19 pneumonia. Improved. Hepatitis panel negative (5) Acute kidney injury: Stable. Repeat creatinine tomorrow Avoid renal toxic medication Avoid anti-inflammatories (6) Moderate protein-calorie malnutrition: Hyperglycemia. A1c was not high but sugars are ranging high with dexamethasone, and I am adding D5W. Add a mild sliding scale insulin today. Patient with moderate protein calorie malnutrition prior to getting COVID. May also be secondary to liver disease Encourage appropriate p.o. intake assess illness improves. (7) Liver mass: Patient with history of liver mass, still pending investigation. He relates he has been sick often when they were trying to schedule biopsy. He will need this followed up as an outpatient. T9 demonstrates a compression fracture on CTA, with possible pathologic lesion. This will also need to be followed up as an outpatient. (8) Esophageal varices: Patient has history of esophageal varices, with bleeding in the past. He has had banding in the past and has had a TIPS procedure. No active bleeding currently. Secondary to elevated dimer, COVID, Lovenox was initiated. Monitor closely for any bleeding. (9) Hepatic encephalopathy: Secondary to the patient's dehydration reduce his dose of lactulose. Monitor closely for hepatic encephalopathy clinically. (10) COPD (chronic obstructive pulmonary disease): Patient with acute COPD exacerbation secondary to COVID. Continue dexamethasone, pulmonary toilet. Plan Multiple other medical problems as outlined in past medical history Full code SCDs for DVT prophylaxis Protonix for GI prophylaxis Significant amount of time spent counseling family today regarding current course of treatment. They are still trying to make a decision regarding intubation, and transfer. I also discussed case with [facility] ICU, for potential transfer. Attestations Medical Necessity Statement*: Needs continued hospitalization secondary to respiratory failure, worsening, secondary to COVID-19 pneumonia with superimposed MRSA pneumonia. Coding Level of Care Code Critical Care >/= 30 minutes Critical care time (in minutes): 89 The high probability of a clinically significant, sudden or life threatening deterioration, as referenced in this documentation, required my full and direct attention, intervention and personal management. The critical care time shown is in addition to time spent performing any reported separately billable procedures and includes the following: [x] Data and vital sign review and interpretation [x] Patient assessment, examination and intervention [x] Medication orders and management [x] Patient/Family updates as able [x] Care Coordination and Documentation. Diagnoses Pneumonia due to COVID-19 virus U07.1; J12.82 Acute respiratory failure with hypoxia J96.01 Metabolic acidosis E87.20 Transaminitis R74.01 Acute kidney injury N17.9 Moderate protein-calorie malnutrition E44.0 Liver mass R16.0 Esophageal varices I85.00 Hepatic encephalopathy K76.82 COPD (chronic obstructive pulmonary disease) J44.9
--- NOTE | 2023-02-17 10:45 | PC.NURSE ---
Dr Robbins got approval on Mr. Doherty to be transferred to a higher level of care in [facility]. Daughter changed her mind on transferring Mr. Whitley to [place] at this time.
--- NOTE | 2023-02-17 11:20 | PC.NURSE ---
Patient?s daughter came out of room and stated, ?Dad decided he did want to transfer to [place], [place].? This nurse proceeded to call report to SAMY Chapa at [facility]. In the middle of calling report, daughter came out of room and stated, ?Dad said if he had to fly that he did not want to be transferred. He is scared of heights.? This nurse called and notified Dr. Robbins. Dr. Robbins then came to bedside and discussed plan of care with family. Currently waiting for the second medical power of workers compensation attorney to arrive- so family can make final decision on intubation and transfer of care
--- NOTE | 2023-02-17 12:05 | PC.NURSE ---
Family and Dr. Robbins had discussion of plan of care and the family made final decision and will not be transferring patient to [facility]. Patient code status changed to DNR and will not get intubation at this time. [facility] notified of cancellation of transfer of care.
--- NOTE | 2023-02-17 13:00 | PC.NURSE ---
Fentanyl 50mcg IVP, Versed 2mg IVP, Etomidate 20mg IVP, rocuronium 50mg IVP, fentanyl 1000mcg IV drip, Propofol 1000mg IV drip, cisatracurium 100mg IV drip wasted with [facility] pharmacist. Patient declined intubation at this time.
[2023-02-17 13:08] LABS: Glucose Point of Care 143 mg/dL (70-110)
--- NOTE | 2023-02-17 13:09 | XR_ITS ---
WS: [id number] Exam: XR chest 1V portable [id number] Date/Time of Exam: 02/17/2023 1:09 PM Reason For Exam: Post PICC insertion Comparison made with previous study performed on the same day at 7:38 a.m. A right-sided PICC line has been placed and ends in the lower one third of the SVC. The lungs are ful ly expanded. Again noted are advanced changes of bullous emphysema and honeycombing throughout both l ungs. Heart size remains within normal limits. The LEFT lower lung zone is out of the [id number]. IMPRESSION: 1. Right-sided PICC line ending in the lower one third of the SVC. 2. No other significant change when compared to the earlier study performed on the same day. LEFT low er lung zone out of the [id number].
[2023-02-17] MEDS: remdesivir 100 MG in sodium chloride 0.9% (100 ml) 80 ML IV (13:35)
[2023-02-17] MEDS: insulin lispro 100 unit/1 mL SUBCUT ×2 (13:36→17:41)
[2023-02-17] MEDS: LORazepam 2 mg/mL INJ 1 mL 0.5 MG IVP (13:46)
--- NOTE | 2023-02-17 14:30 | PC.NURSE ---
Triple lumen PICC placed to right basilic. Pt referred to PICC nurse for PICC placement due to poor peripheral access and comfort care. Risks and benefits discussed and informed consent obtained from pt DPOA. Right arm assessed with basilic vein noted at 5 mm, straight, and apparent best choice for placement. Using sterile technique and MST, basilic vein accessed x 1 stick. Mid-arm circumference measured 10 cm from right AC 27 cm. Trimmed cath 45 cm with 0 cm external length. Line secured with stat-lock. Insertion site covered with Biopatch and TSM. CXR shows tip in distal third of SVC, in good position for use per radiologist. Report given to bedside nursePaola.
[2023-02-17 16:02] LABS: Anion Gap 14.5 (5-19); Blood Urea Nitrogen 38 mg/dL (8-23); Calcium 8.3 mg/dL (8.5-10.5); Carbon Dioxide 19 mmol/L (22-29); Chloride 121 mmol/L (98-107); Glomerular Filtration Rate 83.9 mL/min (90-130); Glucose 178 mg/dL (65-115); Osmolality Calculated 323 mOsm/kg (285-295); Potassium 4.5 mmol/L (3.5-5.1); Sodium 150 mmol/L (136-145)
[2023-02-17 17:43] LABS: Glucose Point of Care 182 mg/dL (70-110)
[2023-02-17] MEDS: dexmedetomidine 400 MCG in sodium chloride 0.9% (100 ml) 100 ML 10.91 MCG IV (19:22)
[2023-02-17 20:26] LABS: Glucose Point of Care 179 mg/dL (70-110)
[2023-02-17] MEDS: enoxaparin 40 mg/0.4 mL Syringe SUBCUT (21:18)
[2023-02-18] VITALS (102 sets, daily range): BP systolic 61–153; BP diastolic 44–106; PULSE 68–140; RESP 15–38; TEMP 36.2–36.6; O2SAT 69–93
[2023-02-18] MEDS: piperacillin-tazobactam 3.375 GM in sodium chloride 0.9% (plus) 50 ML IV ×3 (00:55→17:32)
[2023-02-18] MEDS: ipratropium-albuterol 3 mL Neb INHALATION ×3 (01:35→13:24)
[2023-02-18 03:29] LABS: Hematocrit 38.2 % (37-53); Lymphocytes # 0.4 10^3/uL (0.8-4.8); Mean Corpuscular HGB Conc 32.5 g/dL (30-55); Mean Corpuscular Hemoglobin 30.7 pg (27-33); Mean Corpuscular Volume 94.6 fl (82-101); Mean Platelet Volume 9.9 fL (7.4-10.4); Monocytes # 0.2 10^3/uL (0.2-0.9); Monocytes % 2.6 %; Neutrophils # 6.55 10^3/uL (1.8-7.7); Neutrophils % 90.7 %; Nucleated Red Blood Cells % 0 %; Platelet Count 156 10^3/cmm (157-399); Red Blood Count 4.04 10^6/uL (3.85-5.65); Red Cell Distribution Width 16.4 % (12.1-15.1); White Blood Count 7.22 10^3/uL (3.29-11.43)
[2023-02-18 03:51] LABS: Alanine Aminotransferase 22 U/L (0-41); Albumin Level 2.4 g/dL (3.5-5.2); Alkaline Phosphatase 134 U/L (40-130); Aspartate Amino Transferase 32 U/L (0-40); Blood Urea Nitrogen 41 mg/dL (8-23); Carbon Dioxide 22 mmol/L (22-29); Chloride 121 mmol/L (98-107); Globulin 4.6 g/dL (1.3-4.6); Glomerular Filtration Rate 74.3 mL/min (90-130); Glucose 173 mg/dL (65-115); Osmolality Calculated 326 mOsm/kg (285-295); Sodium 151 mmol/L (136-145); Total Bilirubin 1.2 mg/dL (0.15-1.2)
[2023-02-18 04:05] LABS: ABG PCO2 27.5 mmHg (35-45); ABG PH Result 7.48 (7.35-7.45); Arterial Blood Gas Hematocrit 40.6 % (42-52); Base Excess ABG -2.1 mmol/L (-2.0-2.0); Blood Gas Allen Test Pos; Blood Gas Sample Site Radial, right; Blood Gas Sample Type Arterial; HCO3 ABG 20.2 mmol/L (22-26); PO2 ABG 44.9 mmHg (80.0-100.0)
[2023-02-18 04:06] LABS: Oxygen Device NC
[2023-02-18] MEDS: vancomycin 1,250 MG/250 ML PIGGYBACK 250 MG IV ×2 (04:40→17:32)
[2023-02-18] MEDS: dextrose 5% 1,000 ML 50 ML IV (04:42)
[2023-02-18] MEDS: dexmedetomidine 400 MCG in sodium chloride 0.9% (100 ml) 100 ML 8.73 MCG IV (05:35)
--- NOTE | 2023-02-18 07:00 | XRR_ITS ---
PROCEDURE INFORMATION: Exam: XR Chest Exam date and time: 02/18/2023 7:52 AM Age: 67 years old Clinical indication: Condition or disease; Lung condition and disease; Pneumonia; Viral; Shortness of breath; Additional info: Resp failure TECHNIQUE: Imaging protocol: Radiologic exam of the chest. Views: 1 view. COMPARISON: 1. CR XR chest 1V portable [id number] 02/17/2023 2:31 PM 2. CR XR chest 1V portable [id number] 02/17/2023 7:36 AM 3. CR XR chest 1V portable [id number] 02/13/2023 9:52 AM FINDINGS: Tubes, catheters and devices: Stable right upper extremity PICC terminates at the SVC. Lungs: Intervally stable diffuse cystic change and reticulation with mild worsening of the left lower lung zone with subtle ground-glass attenuation. No dense consolidation. Pleural spaces: No substantial pleural effusion or pneumothorax. Heart/Mediastinum: Unremarkable. No cardiomegaly. Bones/joints: Degenerative changes along the spine. XR/XR chest 1V portable [id number] IMPRESSION: 1. Mildly worsened left lower lung with increased reticulation and ground-glass attenuation. No dense consolidation. 2. Stable right upper extremity PICC.
[2023-02-18 07:33] LABS: Glucose Point of Care 105 mg/dL (70-110)
[2023-02-18] MEDS: budesonide 0.5 mg/2 mL Neb INHALATION (07:55)
[2023-02-18] MEDS: pantoprazole 40 mg SDV IVP (08:11)
[2023-02-18] MEDS: dexamethasone 10 mg/mL INJ 6 MG IVP (08:11)
[2023-02-18] MEDS: LORazepam 2 mg/mL INJ 1 mL 0.5 MG IVP ×2 (09:39→13:49)
--- NOTE | 2023-02-18 09:44 | PC.NURSE ---
daughter here at bedside upset demanding sedation off attempt to explain precedex ect demands doctor called upset with other family in room 'i am not going to let him ' other visitor left talked with and at bedside for prolong time reposition pt attempt to give ice chip per her request and chocking noted sedation down attempted bedpan . Pt will respond to yes and no questions but unable to talk. Dr jack review with daughter status and about nutrition placed back on bipap per daughter request
--- NOTE | 2023-02-18 10:14 | PC.NURSE ---
Abby Castellano here first on dpoa llist aware of status and daughter requested him back on bipap .. she has requested that he be placed back on 100 nrb and 100 high flow mask ativan given
--- NOTE | 2023-02-18 10:43 | PC.SOCIAL ---
IMM not given IMM not given to pt or family. Pt is not expected to d/c in the next 24-48hrs.
--- NOTE | 2023-02-18 12:00 | PC.NURSE ---
resting at this time heart rate stach 120 re
[2023-02-18] MEDS: FUROsemide 10 mg/mL SDV 2mL 20 MG IVP (12:16)
[2023-02-18 12:25] LABS: Glucose Point of Care 82 mg/dL (70-110)
--- NOTE | 2023-02-18 13:06 | PM.PN ---
Subjective Subjective: Shallow frequent breaths, ill-appearing, not answering questions, following some basic directions. Heated high flow cannula covered by nonrebreather oxygen mask. Medications: Reviewed: Yes Vitals/I&O/Wt Last Vital Signs Temp 97.5 F L 02/18/23 08:00 Pulse 113 H 02/18/23 12:00 Resp 20 H 02/18/23 12:00 BP 81/61 02/18/23 12:00 Pulse Ox 91 02/18/23 12:00 O2 Del Method Heated High Flow, Non-Rebreather 02/18/23 07:45 O2 Flow Rate 60 02/18/23 10:16 FiO2 100 02/18/23 12:00 02/17/23 02/18/23 02/18/23 22:59 06:59 14:59 Intake Total 395.827 / 818.153 5953.882 / 1936.339 0 / 0 Output Total 600 / 600 380 / 980 Balance -204.173 / -31.543 987.882 / 956.339 0 / 0 Weight last 48 hrs Weight 83.915 kg Weight 83.943 kg Physical Exam Narrative: Daughter Sharri at bedside. Const: GENERAL APPEARANCE: cooperative OTHER: Weak HHF and NRB HENMT: COMMON NORMALS: oropharynx normal Neck/C-Spine: COMMON NORMALS: no JVD Resp: COMMON NORMALS: clear to auscultation bilaterally EFFORT & INSPECTION: Yes tachypneic AUSCULTATION: clear to auscultation bilaterally Cardio: COMMON NORMALS: no JVD, regular rhythm, S1 normal heart sound present, S2 normal heart sound present and No murmurs present (Cardio) RHYTHM: regular rhythm HEART SOUNDS: S1 normal heart sound present and S2 normal heart sound present GI: COMMON NORMALS: Normal to inspection, nondistended, normoactive bowel sounds present, Soft to palpation and non-tender PALPATION: Yes Soft to palpation Extremity: COMMON NORMALS: no joint enlargement and no pedal edema Neuro: COMMON NORMALS: moves all extremities Skin: COMMON NORMALS: no rashes or lesions noted GENERAL SKIN EXAM: no rashes or lesions noted Urinary Catheter Management: Coude: Cath Placed During This Visit: yes Reason for Continuing Indwelling Catheter: Accurate Measurement of Urinary Output in Critically Ill Patients Urinary Catheter Date of Insertion: 02/13/23 Urinary Catheter Time of Insertion: 21:30 Data 02/18/23 03:07 02/18/23 03:07 Micro: Microbiology 02/13/23 10:40 Blood Culture - Final Blood NO GROWTH AFTER 5 DAYS 02/13/23 09:53 Blood Culture - Preliminary Blood Staphylococcus hominis A&P Assessment and plan (1) Pneumonia due to COVID-19 virus: Severe COVID-19 with ARDS, respiratory distress, respiratory failure, heated high flow, nonrebreather for oxygen support, sats in mid to low 80s. Tachypneic. This morning of chest x-ray becoming restless, and some worsening of distress. Remains tachycardic. During examination his daughter Sharri is in the room, discussed with her and later discussed with EMMA Mora regarding severity of his condition, consideration of options of further care, among including more aggressive care, supportive measures, and as previously considered comfort measures. At this time seems the consensus is that both do not want him in discomfort though not yet proceeding to comfort measures entirely, initially daughter wanted to try BiPAP which was attempted after discussion of additional risks including pressure injury, gastric insufflation, worsening anxiety, nonadherence with medical therapy leading him to pull off other devices. This was tried, however, he was in worse distress afterwards and was switched back to heated high flow and nonrebreather with improvement in his distress. On additional discussion with EMMA Mora, consensus remains to continue the supportive measures currently, without escalation of anything that could cause him additional distress. Discussion with her in case of any additional deterioration in his condition. No switch to complete comfort measures just yet. Another daughter is on the way to come be with him from [place]. Discussed additionally in case of cardiac decompensation, cardiac arrest wishes for no chest compressions which is reasonable as resuscitative efforts would not likely to bring about any improvement to his condition or chances of improvement adding additional distress. Continue Decadron. Completed remdesivir. Continue oxygen support. Precedex initially paused this morning resumed as per discussion with EMMA as he was getting more restless and uncomfortable. Continue breathing treatments. Inhaled steroid. Empirically Zosyn, vancomycin for possible superimposed bacterial infection. Blood culture reviewed, noted Staph hominis, likely contamination. Noted MRSA in sputum culture. Suspect superimposed MRSA pneumonia on top of COVID. Lovenox VT prophylaxis. EF preserved, moderate aortic stenosis on echo. Still 1L in positive balance, will give a dose of Lasix IV 20 mg. Stop D5 infusion. Same concern as discussed with her daughter with regards to nutrition, consideration of option of starting PPN, however, concern with ARDS of worsening pulmonary condition. On consideration of both options and risks with her states fine lets let him starve , asking for clarification of what their wish would be, however, confirms that would not want to start parenteral nutrition. On discussion with DPOA once available, preference is confirmed for this course of action. Norepinephrine has been ordered, use as needed to maintain MAP 65 mmHg. As discussed overall condition and prognosis remain poor. Unable to move him very much or prone. Discussed with nursing, respiratory therapy. (2) Hypernatremia: Without improvement, 151, chloride 121. Some component of mild hyperchloremic metabolic acidosis. However, with respiratory failure ARDS, worsening GGO on x-ray. D5 infusion. Discussed with pharmacist will switch based fluids of other infusions that he is getting to D5. We will give a dose of Lasix. (3) Acute respiratory failure with hypoxia: As above. (4) Metabolic acidosis: Patient presents with metabolic acidosis. This is likely secondary to dehydration and renal dysfunction This has improved (5) Transaminitis: Likely secondary to COVID-19 pneumonia. Improved. Hepatitis panel negative (6) Acute kidney injury: Stable. Repeat creatinine tomorrow Avoid renal toxic medication Avoid anti-inflammatories (7) Moderate protein-calorie malnutrition: Hyperglycemia. A1c was not high but sugars are ranging high with dexamethasone, and I am adding D5W. Add a mild sliding scale insulin today. Patient with moderate protein calorie malnutrition prior to getting COVID. May also be secondary to liver disease Encourage appropriate p.o. intake assess illness improves. (8) Liver mass: Patient with history of liver mass, still pending investigation. He relates he has been sick often when they were trying to schedule biopsy. He will need this followed up as an outpatient. T9 demonstrates a compression fracture on CTA, with possible pathologic lesion. This will also need to be followed up as an outpatient. (9) Esophageal varices: Patient has history of esophageal varices, with bleeding in the past. He has had banding in the past and has had a TIPS procedure. No active bleeding currently. Secondary to elevated dimer, COVID, Lovenox was initiated. Monitor closely for any bleeding. (10) Hepatic encephalopathy: Secondary to the patient's dehydration reduce his dose of lactulose. Monitor closely for hepatic encephalopathy clinically. (11) COPD (chronic obstructive pulmonary disease): Patient with acute COPD exacerbation secondary to COVID. Continue dexamethasone, pulmonary toilet. Plan Multiple other medical problems as outlined in past medical history Full code SCDs for DVT prophylaxis Protonix for GI prophylaxis Discussed with case management. Attestations Medical Necessity Statement*: Continue admission for management of respiratory failure, severe COVID-19, MRSA lower respiratory tract infection in a gentleman with underlying liver cirrhosis, COPD and additional comorbidities. Coding Level of Care Code Critical Care >/= 30 minutes Critical care time (in minutes): 50 The high probability of a clinically significant, sudden or life threatening deterioration, as referenced in this documentation, required my full and direct attention, intervention and personal management. The critical care time shown is in addition to time spent performing any reported separately billable procedures and includes the following: [x] Data and vital sign review and interpretation [x] Patient assessment, examination and intervention [x] Medication orders and management [x] Patient/Family updates as able [x] Care Coordination and Documentation. Diagnoses Pneumonia due to COVID-19 virus U07.1; J12.82 Hypernatremia E87.0 Acute respiratory failure with hypoxia J96.01 Metabolic acidosis E87.20 Transaminitis R74.01 Acute kidney injury N17.9 Moderate protein-calorie malnutrition E44.0 Liver mass R16.0 Esophageal varices I85.00 Hepatic encephalopathy K76.82 COPD (chronic obstructive pulmonary disease) J44.9
--- NOTE | 2023-02-18 13:50 | PC.NURSE ---
dpoa here at bedside aware status awaken abruptly pulling at line cant breath noted blood pressure low Abby related give him ativan keep him comfortable but do not want any medicine to keep blood pressure up and prolong this agony for him
[2023-02-18] MEDS: albumin 25 G/100 ML BAG 60 G IV (14:01)
--- NOTE | 2023-02-18 14:32 | PC.NURSE ---
noted blood pressure low at this time started to initate levophed and dpoa robin patrick stated no do not start that as it will prolong his suffering doctor notified will not start at this time
[2023-02-18] MEDS: LORazepam 2 mg/mL INJ 1 mL IVP ×2 (15:10→21:56)
--- NOTE | 2023-02-18 15:38 | PC.NURSE ---
doctor Wade here talked with robin Tristan ativan given keeping pt comfortable as possible
[2023-02-18 17:25] LABS: Glucose Point of Care 126 mg/dL (70-110)
[2023-02-18 17:58] LABS: Vancomycin Trough 22.1 ug/mL (10-15)
--- NOTE | 2023-02-18 21:15 | PM.CCNAC ---
Critical Care Event Note Got a call from the nurse stating that patient's DPOA/Ms. Mora wants to change the CODE STATUS and goals of care to comfort measures only. Reviewed chart with patient having episodes of hypotension with last recorded blood pressure of 78/47, on heated high flow with concerns for MRSA superimposed pneumonia with ongoing COVID-19 with episodes of anxiety requiring Precedex drip. Discussed patient's care with morning team in detail. Goals of care discussion done in detail with patient's DPOA/Ms. Mora after reviewing the DPOA paperwork. It seems Ms. Mora is the primary DPOA with Ms. Jayjay Castellano and Sharri Manrique being the secondary alternate agents. Goals of care discussed that unfortunately Mr. Wells is not doing too well and is having soft blood pressures with bradycardia and hypoxia requiring high oxygen supplementation and possibility of requiring vasopressors. As per Ms. Mora she does not want patient to have any further discomfort, wants to CODE STATUS to be changed to DNR/DNI only and wants to make sure that patient is as comfortable as possible. Options discussed were continuation of current treatment with CODE STATUS changed to allow natural goals of care changed to comfort measures status only. We discussed unfortunately he is critically ill and it is possible that after survival he would possibly need a long rehab before possibly returning to his baseline quality of life. Other option discussed was comfort measures status which would mean that any active treatment would be stopped, oxygen supplementation will be continued, patient would not be discharged for any further frequent vital checks, no more blood work with continuation of treatment for comfort and pain and letting nature take its own course which would most likely mean . Ms. Mora verbalizes understanding and wants to go ahead with comfort measures status only. Discussion conveyed to patient's nurse. CODE STATUS and medical treatments changed to comfort measures status only. As per Ms. Mora has already spoken to Mr. Wells's daughter who is the secondary agent on DPOA paperwork regarding the status of his health is going to convey her decisions about comfort measures status only to them now. The high probability of a clinically significant, sudden or life threatening deterioration of the patient's [goals of care] system(s) required my full and direct attention, intervention and personal management. The critical care time is as shown. This time is in addition to time spent performing any reported procedures but includes the following: [x] Data and vital sign review and interpretation [x] Patient assessment, examination and intervention [x] Documentation [x] Medication orders and management Critical Care Time Code activated: No Critical Care Time (min): 40 Coding Level of Care Code Critical Care Other Coding Information Prolonged care (total time indicated above or notated here) (Extensive goals of care discussion and changing of CODE STATUS) Time Spent (min) 40
[2023-02-19] VITALS (59 sets, daily range): BP systolic 65–113; BP diastolic 42–69; PULSE 83–124; RESP 24–38; TEMP 36.2–36.3; O2SAT 35–84
[2023-02-19] MEDS: morphine 4 mg/mL SDV 1 mL IVP ×6 (00:13→23:18)
--- NOTE | 2023-02-19 10:40 | P.PN_ITS ---
Subjective Subjective: Not awake. Not in discomfort. Vitals/I&O/Wt Last Vital Signs Temp 97.6 F 02/18/23 20:00 Pulse 97 02/19/23 08:52 Resp 28 H 02/19/23 08:42 BP 76/53 02/19/23 08:00 Pulse Ox 69 L 02/19/23 08:52 O2 Del Method Nasal Cannula 02/19/23 08:52 O2 Flow Rate 3 02/19/23 08:52 FiO2 100 02/18/23 20:00 02/18/23 02/19/23 02/19/23 22:59 06:59 14:59 Intake Total 837.895 / 887.895 840.077 / 1727.972 Output Total 1000 / 1000 700 / 1700 Balance -162.105 / -112.105 140.077 / 27.972 Weight last 48 hrs Weight 79.968 kg Weight 83.915 kg Physical Exam Narrative: Abby at bedside. Const: GENERAL APPEARANCE: not cooperative ORIENTATION/CONSCIOUSNESS: Yes patient obtunded HENMT: COMMON NORMALS: oropharynx normal Neck/C-Spine: COMMON NORMALS: no JVD Resp: COMMON NORMALS: clear to auscultation bilaterally (Coarse breath) EFFORT & INSPECTION: Yes tachypneic AUSCULTATION: clear to auscultation bilaterally (Coarse breath) Cardio: COMMON NORMALS: no JVD, regular rhythm, S1 normal heart sound present, S2 normal heart sound present and No murmurs present (Cardio) RHYTHM: regular rhythm HEART SOUNDS: S1 normal heart sound present and S2 normal heart sound present GI: COMMON NORMALS: Normal to inspection, nondistended, normoactive bowel sounds present, Soft to palpation and non-tender PALPATION: Yes Soft to palpation Extremity: COMMON NORMALS: no joint enlargement and no pedal edema Skin: COMMON NORMALS: no rashes or lesions noted GENERAL SKIN EXAM: no rashes or lesions noted Urinary Catheter Management: Coude: Cath Placed During This Visit: yes Reason for Continuing Indwelling Catheter: Hospice/Comfort/Palliative Care Urinary Catheter Date of Insertion: 02/13/23 Urinary Catheter Time of Insertion: 21:30 Data 02/18/23 03:07 02/18/23 03:07 Micro: Microbiology 02/13/23 10:40 Blood Culture - Final Blood NO GROWTH AFTER 5 DAYS A&P Assessment and plan (1) Pneumonia due to COVID-19 virus: Last night made comfort measures after condition continued to deteriorate. Continue support for comfort measures. Continue as needed IV morphine, transition to oral morphine, Ativan IV as needed. Continue supportive measures on medical surgical floor. Severe COVID-19 with ARDS, respiratory distress, respiratory failure, accompanied by MRSA lower respiratory tract infection. Underlying COPD. Moderate aortic stenosis. (2) Hypernatremia: (3) Acute respiratory failure with hypoxia: As above. (4) Metabolic acidosis: (5) Transaminitis: (6) Acute kidney injury: (7) Moderate protein-calorie malnutrition: (8) Liver mass: (9) Esophageal varices: (10) Hepatic encephalopathy: (11) COPD (chronic obstructive pulmonary disease): Plan Multiple other medical problems as outlined in past medical history Attestations Medical Necessity Statement*: Continue admission for end-of-life comfort measure support. and High MDM includes described risk of complication, morbidity or mortality of management as documented Diagnoses Pneumonia due to COVID-19 virus U07.1; J12.82 Hypernatremia E87.0 Acute respiratory failure with hypoxia J96.01 Metabolic acidosis E87.20 Transaminitis R74.01 Acute kidney injury N17.9 Moderate protein-calorie malnutrition E44.0 Liver mass R16.0 Esophageal varices I85.00 Hepatic encephalopathy K76.82 COPD (chronic obstructive pulmonary disease) J44.9
--- NOTE | 2023-02-19 11:50 | PC.NURSE ---
Report called to Med-Surg and given to Nadia Thomson RN. Pt to go to room 275.
--- NOTE | 2023-02-19 12:41 | PC.NURSE ---
Pt transferred to room 275 at 12:25PM and handed off to verifier operator. Pt transferred in ICU bed and remained in same bed in med surg. A med surg bed was brought to ICU.
[2023-02-19] MEDS: LORazepam 2 mg/mL INJ 1 mL IVP (21:25)
[2023-02-20] MEDS: morphine 4 mg/mL SDV 1 mL IVP ×4 (00:25→19:05)
[2023-02-20 07:34] VITALS: BP 93/60; PULSE 111; RESP 25; TEMP 36.2; O2SAT 49
[2023-02-20 10:19] VITALS: RESP 28
[2023-02-20 13:02] VITALS: BP 79/35; PULSE 110; RESP 27; TEMP 36.2; O2SAT 39
--- NOTE | 2023-02-20 14:39 | PM.PN ---
Subjective Subjective: Hospital course, labs appreciated. Patient currently on comfort measures status. Seen with nelia at bedside. Patient seemed to be gasping for air though as per grandson patient is comfortable. Medications: Reviewed: Yes Vitals/I&O/Wt Last Vital Signs Temp 97.2 F L 02/20/23 13:02 Pulse 110 H 02/20/23 13:02 Resp 27 H 02/20/23 13:02 BP 79/35 02/20/23 13:02 Pulse Ox 39 L 02/20/23 13:02 O2 Del Method Nasal Cannula 02/20/23 13:02 O2 Flow Rate 2 02/19/23 20:00 FiO2 100 02/18/23 20:00 02/19/23 02/20/23 02/20/23 22:59 06:59 14:59 Intake Total 0 / 0 0 / 0 Output Total 200 / 200 160 / 360 Balance -200 / -200 -160 / -360 0 / 0 Weight last 48 hrs Weight 79.968 kg Physical Exam Narrative: Deferred given hospice care status Urinary Catheter Management: Coude: Cath Placed During This Visit: yes Reason for Continuing Indwelling Catheter: Other Urinary Catheter Date of Insertion: 02/13/23 Urinary Catheter Time of Insertion: 21:30 Data 02/18/23 03:07 02/18/23 03:07 Micro: Microbiology 02/13/23 09:53 Blood Culture - Final Blood Staphylococcus hominis A&P Assessment and plan (1) Pneumonia due to COVID-19 virus: (2) Hypernatremia: (3) Acute respiratory failure with hypoxia: As above. (4) Metabolic acidosis: (5) Transaminitis: (6) Acute kidney injury: (7) Moderate protein-calorie malnutrition: (8) Liver mass: (9) Esophageal varices: (10) Hepatic encephalopathy: (11) COPD (chronic obstructive pulmonary disease): (12) Staphylococcus aureus bacteremia: (13) Counseling regarding goals of care: (14) MRSA pneumonia: Plan Given multiple comorbidities, severely sick current status, over baseline conditioning patient's DPOA transition patient to comfort measures status. Continue with comfort measures for now. Vitals as per protocol. Continue with morphine, Ativan as needed. Discharge plan: Plan to discharge home with hospice versus SNF with hospice versus inpatient hospice. Will discuss further with case management and family members. Attestations Medical Necessity Statement*: Requires further hospitalization for comfort care status in a patient with multiple comorbidities, poor baseline health admitted for MRSA pneumonia, staph bacteremia, COVID-19 Diagnoses Pneumonia due to COVID-19 virus U07.1; J12.82 Hypernatremia E87.0 Acute respiratory failure with hypoxia J96.01 Metabolic acidosis E87.20 Transaminitis R74.01 Acute kidney injury N17.9 Moderate protein-calorie malnutrition E44.0 Liver mass R16.0 Esophageal varices I85.00 Hepatic encephalopathy K76.82 COPD (chronic obstructive pulmonary disease) J44.9 Staphylococcus aureus bacteremia R78.81; B95.61 Counseling regarding goals of care Z71.89 MRSA pneumonia J15.212
[2023-02-20 16:00] VITALS: BP 81/43; PULSE 103; RESP 26; TEMP 36.3; O2SAT 49
[2023-02-20 19:05] VITALS: RESP 28
[2023-02-20 19:44] VITALS: BP 94/51; PULSE 104; RESP 18; TEMP 36.3; O2SAT 49
[2023-02-21] VITALS: BP 67/35; PULSE 113; RESP 17; TEMP 36.2; O2SAT 71
[2023-02-21 00:12] VITALS: PULSE 114
--- NOTE | 2023-02-21 01:00 | PC.NURSE ---
Time of verified by two RNs at at 0056. field supervisor and physician notified. Son at bedside.
--- NOTE | 2023-02-21 02:22 | PC.NURSE ---
Post-mortem care completed by primary nurse and FIELD CONTACT PERSON. Patient left via home transportation. 2 rings sent with patient to home. All other belongings taken home by grandson.
--- NOTE | 2023-02-21 09:29 | PM.DDS ---
Discharge Providers DDS Date of Admission: 02/13/23 11:24 Date Summary Completed: 02/21/23 Attending Provider at Admission: Cipriano Robbins MD Time of : 00:56 Attending Provider at Discharge: Srikanth Anderson MD Consults: Pulmonary: Datar Primary Care Provider: Shaheed Guzman MD DS Diagnoses Hospital Diagnoses (1) Pneumonia due to COVID-19 virus: (2) Hypernatremia: (3) Acute respiratory failure with hypoxia: (4) Metabolic acidosis: (5) Transaminitis: (6) Acute kidney injury: (7) Moderate protein-calorie malnutrition: (8) Liver mass: (9) Esophageal varices: Permanent Problem Comments: History of esophageal banding (10) Hepatic encephalopathy: (11) COPD (chronic obstructive pulmonary disease): (12) Staphylococcus aureus bacteremia: (13) Counseling regarding goals of care: (14) MRSA pneumonia: Reason for Visit Reason for Visit covid +, NVD, sob Summary Date and Time of Date of : 02/21/23 Time of : 00:56 Summary Summary: Juan Doherty is a 67 year old male who presents to the hospital with feeling ill for the last week.? His history is augmented by his family who is in the room with him secondary to his tachypnea and respiratory failure.? From my understanding he has been ill with loose stools over the last week, but significantly short of breath over his baseline for the last 2 days.? He was told he had a fever by his grandson, but cannot remember the exact temperature.? He normally takes 2 L of oxygen but is requiring 100% FiO2 by high flow, heated in the ER.? He denies any chest discomfort.? He states he feels perhaps a little bit better than when he came in.? He has not been eating or drinking very well lately. Patient was admitted to the ICU for further evaluation and management of hypoxic respiratory failure in setting of COVID-19, superimposed bacterial pneumonia along with acute kidney injury and transaminitis in setting of baseline moderate protein energy malnutrition, liver mass and hepatic encephalopathy. Patient's hospitalization was complicated with him requiring high oxygen supplementation with a very slow to gradual response to treatment because of multiple comorbidities and baseline malnutrition. Due to all of the above multiple goals of care discussions were done with DPOA and other family members. On 02/18 patient's DPOA/Ms. Mora decided to go ahead with comfort care measures. Patient eventually on at 0056 hrs. in comfortable status with family at bedside. Additional Data Confirmation of as documented by pronouncing clinician: no pulse, no respirations and no heart sounds Family: at bedside Additional persons at bedside: nursing staff Attending/PCP notified?: I am attending Was code activated?: No Autopsy requested?: No Advance directives?: No Hospice patient?: Yes Discharge Plan Discharge Patient Disposition: Condition: Stable Prescriptions: No Action omeprazole 40 mg capsule,delayed release(DR/EC) 40 mg PO BID montelukast [Singulair] 10 mg tablet 10 mg PO DAILY Qty: 30 0RF lactulose 10 gram/15 mL (15 mL) solution 20 g PO TID Qty: 1440 3RF milk thistle 500 mg Capsule 500 mg PO DAILY Rx Instructions: give with meal/snack Vitamin C 500 mg Tablet 500 mg PO DAILY levothyroxine 50 mcg tablet 50 mcg PO DAILY albuterol sulfate 90 mcg/actuation Hfa Aerosol Inhaler 2 puff INHALATION QID PRN (Reason: Shortness Of Breath) turmeric 400 mg Capsule 400 mg PO DAILY simvastatin 40 mg tablet 40 mg PO DAILY ferrous sulfate 325 mg (65 mg iron) tablet 325 mg PO DAILY Referrals: Shaheed Guzman MD [Primary Care Provider] - Patient Instructions: Opioid Safety Probable Cause of Probable cause of : COVID-19 DS Attestations Time Spent in /Discharge Care*: greater than 30 min Quality - AMI: AMI present?: No Quality - Stroke: CVA present?: No Symptom Onset Unknown: No Quality - VTE: VTE present?: No Deep Vein Thrombosis/Pulmonary Embolism Present on Admission: No Coding Level of Care Code 86531 Total time (in minutes) for Discharge: 40 Diagnoses Pneumonia due to COVID-19 virus U07.1; J12.82 Hypernatremia E87.0 Acute respiratory failure with hypoxia J96.01 Metabolic acidosis E87.20 Transaminitis R74.01 Acute kidney injury N17.9 Moderate protein-calorie malnutrition E44.0 Liver mass R16.0 Esophageal varices I85.00 Hepatic encephalopathy K76.82 COPD (chronic obstructive pulmonary disease) J44.9 Staphylococcus aureus bacteremia R78.81; B95.61 Counseling regarding goals of care Z71.89 MRSA pneumonia J15.212
== END 2023-02-21 02:25 | disposition expired | DRG 177 ==
LOC: ER 09:58 → ICU 11:30 → MEDSURG 02-19 12:27
PROVIDERS: Internal Medicine; Internal Medicine Pulmonary Disease; Admitting Provider Internal Medicine; Emergency Provider Family Medicine; PCP Family Medicine; Visit Provider Student in an Organized Health Care Education/Training Program
DX: U07.1 COVID-19 (principal); J12.82 Pneumonia due to coronavirus disease 2019; J80 Acute respiratory distress syndrome; J15.212 Pneumonia due to Methicillin resistant Staphylococcus aureus; N17.9 Acute kidney failure, unspecified; E44.0 Moderate protein-calorie malnutrition; E87.0 Hyperosmolality and hypernatremia; I85.10 Secondary esophageal varices without bleeding; E87.20 Acidosis, unspecified; Z99.81 Dependence on supplemental oxygen; Z68.23 Body mass index [BMI] 23.0-23.9, adult; Z66 Do not resuscitate; Z51.5 Encounter for palliative care; K22.70 Barrett's esophagus without dysplasia; K74.60 Unspecified cirrhosis of liver; Z85.038 Personal history of other malignant neoplasm of large intestine; Z90.49 Acquired absence of other specified parts of digestive tract; K21.9 Gastro-esophageal reflux disease without esophagitis; E78.5 Hyperlipidemia, unspecified; I10 Essential (primary) hypertension; E03.9 Hypothyroidism, unspecified; I35.0 Nonrheumatic aortic (valve) stenosis; Z87.891 Personal history of nicotine dependence; J84.10 Pulmonary fibrosis, unspecified; J43.2 Centrilobular emphysema; R16.0 Hepatomegaly, not elsewhere classified; E86.0 Dehydration; K76.82 Hepatic encephalopathy; I27.20 Pulmonary hypertension, unspecified
CPT/HCPCS: 36415; 36416; 36573; 36592; 36600; 51702; 71045; 71275; 80048; 80051; 80053; 80074; 80202; 81001; 82330; 82550; 82803; 82805; 82962; 83036; 83735; 83880; 84145; 85025; 85378; 86140; 87040; 87070; 87077; 87186; 87205; 87635; 87641; 93005; 93306; 93970; 94640; 94660; 96365; 96367; 96372; 96375; 96376; 99285; C1751; C9113; J0248; J1100; J1200; J1650; J1815; J1940; J2060; J2270; J2405; J2543; J3105; J3370; J7030; J7070; J7613; J7626; P9046; Q9967